=== PATIENT | female | born 1955 | race Two or more races ===

== ENCOUNTER 2022-01-27 09:47 | Outpatient (REF) | payer MEDICARE, MEDICAID, SELFPAY ==
[2022-01-27 10:13] LABS: MANUAL DIFF FLAG NO
[2022-01-27 10:39] LABS: Basophils Percent Auto 0.4 % (0-2); Eosinophils Absolute Auto 0.1 X10*3/uL (0.0-0.4); Eosinophils Percent Auto 2.3 % (0-4); Hematocrit 41.4 % (37.0-47.0); Hemoglobin 13.5 g/dl (12.0-16.0); Imm Gran Abs Auto 0.05 X10*3/uL (0.00-0.03); Imm Gran Pct Auto 0.9 % (0.0-0.4); Lymphocytes Absolute Auto 1.8 X10*3/uL (1.2-4.9); Lymphocytes Percent Auto 31.8 % (20-40); Mean Corpuscular HGB Conc 32.6 g/dl (31.0-35.0); Mean Corpuscular Hemoglobin 28.1 pg (27.0-33.0); Mean Corpuscular Volume 86.3 fL (80.0-98.0); Mean Platelet Volume 10.2 fL (9.4-12.3); Monocytes Absolute Auto 0.5 X10*3/uL (0.1-1.2); Monocytes Percent Auto 8.8 % (2-11); Neutrophils Absolute Auto 3.1 x10*3/uL (2.0-8.3); Neutrophils Percent Auto 55.8 % (45-73); Platelet Count 205 X10*3/uL (160-400); Red Cell Distribution Width 15.9 % (11.0-16.0); White Blood Count 5.5 X10*3/uL (4.8-10.8)
[2022-01-27 11:04] LABS: Appearance Urine CLEAR; Color Urine YELLOW; Glucose Urine UA NEG (NEG); Leukocyte Esterase Urine NEG (NEG); Nitrite Urine NEG (NEG); Urine Blood NEG (NEG); Urine Ketones NEG (NEG); Urine Protein NEG (NEG-TRACE)
[2022-01-27 11:11] LABS: Alanine Aminotransferase 13 U/L (0-31); Albumin Level 3.8 g/dL (3.5-5.0); Alkaline Phosphatase 106 U/L (39-117); Anion Gap 14 (12-20); Aspartate Amino Transferase 15 U/L (5-31); Bilirubin Total 0.4 mg/dL (0.0-1.0); Blood Urea Nitrogen 8 mg/dL (9-16); Calcium 9.3 mg/dL (8.4-10.2); Carbon Dioxide 27 mmol/L (22-29); Chloride 103 mmol/L (96-108); Cholesterol 243 mg/dL; Estimated Glomerular Filt Rate > 60; Glucose Fasting 103 mg/dL (60-99); HDL Cholesterol 67 mg/dL; LDL Cholesterol Calculated 124 mg/dl; Lipase 35 U/L (8-78); Potassium 3.6 mmol/L (3.3-5.1); Sodium 140 mmol/L (135-145); Total Protein 8.3 g/dL (6.5-8.0); Triglycerides 262 mg/dL
[2022-01-27 11:18] LABS: TSH reflex Free T4 1.87 uIU/mL (0.32-4.0); Vitamin D 25-OH Total 33.7 ng/mL (>30)
[2022-01-27 11:34] LABS: Vitamin B12 346 pg/mL (200-900)
== END 2022-01-27 09:48 | disposition home or self-care (01) ==
LOC: HO.LAB 09:47
PROVIDERS: Visit Provider Nurse Practitioner Family
DX: Z13.29 Encounter for screening for other suspected endocrine disorder (principal); K85.90 Acute pancreatitis without necrosis or infection, unspecified; D75.839 Thrombocytosis, unspecified; R32 Unspecified urinary incontinence; I10 Essential (primary) hypertension
CPT/HCPCS: 36415; 80053; 80061; 81003; 82306; 82607; 82746; 83690; 84443; 85025

== ENCOUNTER 2022-04-23 13:24 | Outpatient (REF) | payer OTHER, SELFPAY ==
--- NOTE | ~2022-04-23 | MM_ITS ---
EXAMINATION: BONE DENSITOMETRY CLINICAL INDICATION: Asymptomatic menopausal state. COMPARISON: This is the patient's baseline examination. TECHNIQUE: Using a [employer] DXA System (software version: 13.1) manufactured by [employer], dual-energy x-ray absorptiometry was performed of the lumbar spine and left hip. The images are of good technical quality. Summary results are attached. FINDINGS: AP SPINE L1-L4: BMD 0.774 g/cm2, Z-score -2.2, T-score -3.4, osteoporosis. LEFT FEMUR, NECK: BMD 0.783 g/cm2, Z-score -0.5, T-score -1.8, osteopenia. LEFT FEMUR, TOTAL: BMD 0.799 g/cm2, Z-score -0.6, T-score -1.7, osteopenia. IDENTIFIED RISK FACTORS: Dementia, history of fracture (adult). Early menopause, secondary osteoporosis, hysterectomy, bilateral oophorectomy. HISTORY OF FRACTURE: Other. MEDICATIONS: None listed. MM/XR DEXA axial skeleton IMPRESSION: 1. DIAGNOSIS: Osteoporosis based on the lowest T-score value of -3.4 in the lumbar spine applying World Health Organization criteria. 2. 10-YEAR FRACTURE RISK PREDICTION, FRAX: According to the guidelines, FRAX calculation should only be performed on patients in the osteopenia bone density category. Therefore, FRAX was not performed on this patient. 3. Treatment Recommendations: NOF guidelines recommend consideration for treatment in postmenopausal women and men age 50 and older presenting with the following: -A hip or vertebral (clinical or morphometric) fracture. -T-score less than or equal to -2.5 at the femoral neck or spine after appropriate evaluation to exclude secondary causes. -Low bone mass at the hip or spine and a 10-year fracture probability by FRAX of greater than or equal to 3% for hip fracture or greater than or equal to 20% for major osteoporotic fracture based on the [place] adapted WHO algorithm. 4. Other Recommendations: All treatment decisions require clinical judgment and consideration of individual patient factors, including patient preferences, comorbidities, previous drug use, risk factors not captured in the FRAX model (e.g. frailty, falls, vitamin D deficiency, increased bone turnover, interval significant decline in bone density) and possible under or overestimation of fracture risk by FRAX. Additional medical evaluation for secondary cause of low bone mineral density may be appropriate. FUTURE SCAN RECOMMENDATION: People with diagnosed cases of osteoporosis or at high risk for fracture should have regular bone mineral density tests. For patients eligible for Medicare, routine testing is allowed once every 2 years. The testing frequency can be increased to one year for patients who have rapidly progressing disease, those who are receiving or discontinuing medical therapy to restore bone mass, or have additional risk factors.
--- NOTE | ~2022-04-23 | MM_ITS ---
EXAMINATION: MM SCREENING DIGITAL BREAST TOMOSYNTHESIS, BILATERAL CLINICAL INFORMATION: Screening. Asymptomatic. Prior outside mammography from [place] unavailable. The lifetime risk of breast cancer based on the Tyrer-Cuzick Model is 4%. COMPARISON: None. TECHNIQUE: Digital breast tomosynthesis is performed in both the craniocaudal and mediolateral oblique views along with computer-aided detection (CAD). Synthesized 2D images are generated from the tomosynthesis. FINDINGS: There are scattered areas of fibroglandular density (ACR BI-RADS breast composition Category b). There are no significant masses, abnormal calcifications, or other abnormalities. No architectural abnormality. The axilla and skin contours are unremarkable. MM/MM tomosynthesis screening BI IMPRESSION: No mammographic evidence of malignancy. ASSESSMENT: BI-RADS 1: Negative RECOMMENDATION: Routine annual mammography screening. This patient's information was entered into a reminder system with a target due date for their next mammogram.
== END 2022-04-23 13:25 | disposition home or self-care (01) ==
LOC: HO.MAMMO 13:24
PROVIDERS: PCP Nurse Practitioner Family
DX: Z12.31 Encounter for screening mammogram for malignant neoplasm of breast (principal); Z13.820 Encounter for screening for osteoporosis; Z78.0 Asymptomatic menopausal state
CPT/HCPCS: 77063; 77067; 77080

== ENCOUNTER → 2022-05-28 13:19 | Outpatient (BNVA) | payer OTHER, SELFPAY | PROVIDERS: PCP Nurse Practitioner Family; Visit Provider Internal Medicine | DX: Z01.818 Encounter for other preprocedural examination (principal) | CPT/HCPCS: 99202 ==

== ENCOUNTER → 2022-05-29 08:23 | Outpatient (BNVA) | payer OTHER, SELFPAY | PROVIDERS: PCP Nurse Practitioner Family; Visit Provider Internal Medicine Endocrinology, Diabetes & Metabolism | DX: M81.0 Age-related osteoporosis without current pathological fracture (principal) | CPT/HCPCS: 99202 ==

== ENCOUNTER 2022-05-29 09:53 | Outpatient (REF) | payer OTHER, SELFPAY ==
[2022-06-05 19:04] LABS: PES - Abn Protein Band 1 0.9 g/dL (NONE DETECTED); Prot Elec - Albumin 4.1 g/dL (3.8-4.8); Prot Elec - Alpha1 0.3 g/dL (0.2-0.3); Prot Elec - Alpha2 0.8 g/dL (0.5-0.9); Prot Elec - Beta 1 0.5 g/dL (0.4-0.6); Prot Elec - Beta 2 0.3 g/dL (0.2-0.5); Prot Elec - Gamma 2.4 g/dL (0.8-1.7); Prot Elec - Total Protein 8.3 g/dL (6.1-8.1)
== END 2022-05-29 09:54 | disposition home or self-care (01) ==
LOC: HO.10HDL 09:53
PROVIDERS: Visit Provider Internal Medicine Endocrinology, Diabetes & Metabolism
DX: M81.0 Age-related osteoporosis without current pathological fracture (principal)
CPT/HCPCS: 84165; 86335

== ENCOUNTER 2022-06-02 08:03 | Day surgery (SDC) | payer OTHER, SELFPAY ==
--- NOTE | 2022-05-30 09:45 | HO.ANESPROP2 ---
Documented by User: Miya Juárez NP 05/30/22 09:47 HPI - Anesthesia Eval Consult details Narrative: 67yo F for Colonoscopy PMFSH Active Problems Active Problems: All Active Problems (Updated 04/25/22 @ 13:17 by FERNANDA Garcia) Osteoporosis (Acute) Obesity (BMI 30-39.9) (Acute) Cervical cancer screening (Acute) Adult general medical exam (Acute) Screening for colon cancer (Acute) Post-menopausal (Acute) Elevated fasting glucose (Acute) Hyperlipidemia (Acute) GERD (gastroesophageal reflux disease) (Acute) Impaired mobility and ADLs (Acute) Urinary incontinence (Acute) History of CVA (cerebrovascular accident) (Acute) Screening for hypothyroidism (Acute) Weakness (Acute) Hypertension (Acute) Thrombocytosis (Acute) Pancreatitis (Acute) Dementia (Acute) Past Medical History Medical History COVID-19 History of CVA (cerebrovascular accident) History of DVT (deep vein thrombosis) Hospital discharge follow-up Family History Family History Mother Hypertension History of CVA (cerebrovascular accident) Father Diabetes Surgical History Surgical History H/O section H/O hand surgery Social History Social History Housing: House Patient Tobacco Use Status: Never used Tobacco e-Cigarette/Vaping Use: Never Used Use of substances other than those prescribed or required for medical reasons: No Are you DNR?: No Advance Directives: No Advance Directives Information Provided: Yes service: No Cognitive needs: Yes (walker ) Hearing needs: No Vision needs: No Meds Allergies Allergy/AdvReac Type Severity Reaction Status Date / Time aspirin Allergy Anaphylaxis Verified 05/29/22 08:31 Home Medications Medication Instructions Recorded Confirmed Last Taken Type carbidopa 25 mg-levodopa 100 mg 1 tab PO TID 04/10/22 06/02/22 Unknown History tablet Exam Exam Date and Time: May 30, 2022 0945 Pertinent Lab Results Pertinent Lab Results: Laboratory Tests 01/27/22 01/27/22 10:11 10:11 WBC 5.5 Hgb 13.5 Hct 41.4 Plt Count 205 Sodium 140 Potassium 3.6 Chloride 103 Carbon Dioxide 27 BUN 8 L Creatinine 0.78 Assessment and Plan Assessment Anesthesia Assessment: Chart Reviewed Documented by User: Kenisha Jean MD 06/02/22 09:06 [facility] Active Problems Active Problems: All Active Problems (Updated 04/25/22 @ 13:17 by FERNANDA Garcia) Osteoporosis (Acute) Obesity (BMI 30-39.9) (Acute) Cervical cancer screening (Acute) Adult general medical exam (Acute) Screening for colon cancer (Acute) Post-menopausal (Acute) Elevated fasting glucose (Acute) Hyperlipidemia (Acute) GERD (gastroesophageal reflux disease) (Acute) Impaired mobility and ADLs (Acute) Urinary incontinence (Acute) History of CVA (cerebrovascular accident) (Acute)- multiple strokes Screening for hypothyroidism (Acute) Weakness (Acute) Hypertension (Acute) Thrombocytosis (Acute) Pancreatitis (Acute) Dementia (Acute) Past Medical History Medical History COVID-19 History of CVA (cerebrovascular accident) History of DVT (deep vein thrombosis) Hospital discharge follow-up Functional capacity: uses cane/walker Family History Family History Mother Hypertension History of CVA (cerebrovascular accident) Father Diabetes Family history of problems with anesthesia: No Surgical History Surgical History H/O section H/O hand surgery History of Problems with Anesthesia: No Social History Social History Housing: House Patient Tobacco Use Status: Never used Tobacco e-Cigarette/Vaping Use: Never Used Use of substances other than those prescribed or required for medical reasons: No Are you DNR?: No Advance Directives: No Advance Directives Information Provided: Yes service: No Cognitive needs: Yes (walker ) Hearing needs: No Vision needs: No Meds Allergies Allergy/AdvReac Type Severity Reaction Status Date / Time aspirin Allergy Anaphylaxis Verified 05/29/22 08:31 Home Medications Medication Instructions Recorded Confirmed Last Taken Type carbidopa 25 mg-levodopa 100 mg 1 tab PO TID 04/10/22 06/02/22 Unknown History tablet Exam Height,Weight and Vital Signs: Height 4 ft 4 in Weight 67.585 kg Vital Signs Temp Pulse Resp BP Pulse Ox O2 Del Method 06/02/22 08:58 97.4 F 66 16 156/76 H 97 Room Air Airway Mallampati Class: III TM Dist: >3cm Neck ROM: Full Loose/Missing/Broken Teeth: No Heart: RRR Lungs: CTAB Assessment and Plan Assessment Anesthesia Assessment: Anesthesia Plan Discussed (Discussed with daughter (HCP)) Final Anesthetic Review Family History of Problems with Anesthesia: No History of Problems with Anesthesia: No NPO: Yes ASA Class: III Final Preanesthetic Review: No Changes in Pt Med Stat, Meds/Allgs Chart Reviewed, Consent Obtained/Reviewed and Anes Risks/Benef Reviewed Patient Risk: Intermediate Procedure Risk: Low Assessment/Block/Sedation in SS: Assess/Block/Sedation-SS Anesthetic Plan Anesthetic Plan: MAC: Disposition: Standard PACU
[2022-06-02 08:25] VITALS: BMI 38.7
[2022-06-02 08:58] VITALS: BP 156/76; PULSE 66; RESP 16; TEMP 36.3; O2SAT 97
[2022-06-02] MEDS: Lactated Ringers 1,000 ML 100 ML IVCONT (09:13)
--- NOTE | 2022-06-02 09:32 | MHC.SHP ---
Pre-Procedural Eval Section A Date of Service: 06/02/22 The patient is an INPATIENT: No The History & Physical has been completed within 30 days and I have reviewed it.: Yes Section B Chief Complaint: screening Allergies: Allergies Allergy/AdvReac Type Severity Reaction Status Date / Time aspirin Allergy Anaphylaxis Verified 05/29/22 08:31 Plan Diagnosis/Plan: Unchanged I have reviewed the history and physical and performed a pertinent physical examination on my patient. No changes have occurred unless specified.
--- NOTE | 2022-06-02 09:47 | P.OP_ITS ---
Operative Note Operative Note Date of Service: 06/02/22 Narrative: Procedure: Colonoscopy Indication: Screening Endoscopist: Lucrecia Moreau MD Anesthesia Provider: Maria Alejandra Olson CRNA Anesthesia type: MAC Instrument: Olympus [id number]-[id number] Consent: Indication, risks vs benefits, and alternatives were discussed with the patient's daughter (HCP) who gave written informed consent to proceed. EKG, pulse, pulse oximetry and blood pressure were monitored throughout the procedure. Please see anesthesia flowsheet. Procedure: The patient was brought to the procedure room and placed in the left lateral decubitus position. IV medications were administered by the anesthesia provider in attendance. A digital rectal exam was performed which was abnormal due to finding of hemorrhoids. The colonoscope was then inserted through the anus and advanced through the colon to the cecum at 75 cm,and terminal ileum. Mucosa was carefully examined under high definition white light as the instrument was slowly withdrawn in a retrograde panoramic fashion. Retroflexion was performed in rectum. The procedure was not difficult. There were no immediate obvious complications. The quality of the prep was BBPS: 3+2+3 = adequate Withdrawal time 10 minutes. Limitations: No limitations. Findings: Mucosa: Normal to cecum and terminal ileum. Protruding lesions: * Large external and small internal hemorrhoids without stigmata of recent bleeding. Impression: 1. Normal colon and terminal ileum mucosa 2. Internal and external hemorrhoids Recommendations: - Repeat colonoscopy in 10 years for CRC screening if in good health
[2022-06-02 10:22] VITALS: BP 143/76; PULSE 65; RESP 16; TEMP 36.2; O2SAT 99
[2022-06-02 10:37] VITALS: BP 150/79; PULSE 73; RESP 16; TEMP 36.2; O2SAT 98
[2022-06-02 10:52] VITALS: BP 147/87; PULSE 57; RESP 16; TEMP 36.1; O2SAT 99
== END 2022-06-02 11:39 | disposition home or self-care (01) ==
PROVIDERS: PCP Nurse Practitioner Family; Visit Provider Internal Medicine
PROC: 0DJD8ZZ Inspection of Lower Intestinal Tract, Via Natural or Artificial Opening Endoscopic (ICD-10-PCS; CPT 45378; principal; 2022-06-02 09:30)
DX: Z12.11 Encounter for screening for malignant neoplasm of colon (principal); K64.8 Other hemorrhoids; K64.4 Residual hemorrhoidal skin tags; K21.9 Gastro-esophageal reflux disease without esophagitis; G20 Parkinson's disease; F02.80 Dementia in other diseases classified elsewhere, unspecified severity, without behavioral disturbance, psychotic disturbance, mood disturbance, and anxiety; I10 Essential (primary) hypertension; M81.0 Age-related osteoporosis without current pathological fracture; E66.9 Obesity, unspecified; Z68.38 Body mass index [BMI] 38.0-38.9, adult; Z79.899 Other long term (current) drug therapy; Z88.8 Allergy status to other drugs, medicaments and biological substances; Z86.73 Personal history of transient ischemic attack (TIA), and cerebral infarction without residual deficits; Z86.718 Personal history of other venous thrombosis and embolism; Z86.16 Personal history of COVID-19
CPT/HCPCS: G0121

== ENCOUNTER → 2022-06-18 13:57 | Outpatient (BNVA) | payer OTHER, SELFPAY | PROVIDERS: PCP Nurse Practitioner Family; Visit Provider Internal Medicine | DX: Z09 Encounter for follow-up examination after completed treatment for conditions other than malignant neoplasm (principal) | CPT/HCPCS: 99212 ==

== ENCOUNTER 2022-07-01 10:48 | Outpatient (REF) | payer OTHER, SELFPAY ==
[2022-07-01 11:43] LABS: Hematocrit 42.9 % (37.0-47.0); Hemoglobin 14.2 g/dl (12.0-16.0); Mean Corpuscular HGB Conc 33.1 g/dl (31.0-35.0); Mean Corpuscular Hemoglobin 29.8 pg (27.0-33.0); Mean Corpuscular Volume 90.1 fL (80.0-98.0); Mean Platelet Volume 9.9 fL (9.4-12.3); Platelet Count 264 X10*3/uL (160-400); Red Blood Count 4.76 X10*6/uL (4.20-5.50); Red Cell Distribution Width 14.3 % (11.0-16.0)
[2022-07-01 11:57] LABS: Estimated Average Glucose 111 mg/dL; Hemoglobin A1c % 5.5 %
[2022-07-01 12:35] LABS: Alanine Aminotransferase 20 U/L (0-31); Albumin Level 4.3 g/dL (3.5-5.0); Alkaline Phosphatase 113 U/L (39-117); Anion Gap 14 (12-20); Aspartate Amino Transferase 17 U/L (5-31); Bilirubin Total 0.5 mg/dL (0.0-1.0); Blood Urea Nitrogen 11 mg/dL (9-16); Calcium 9.8 mg/dL (8.4-10.2); Carbon Dioxide 26 mmol/L (22-29); Chloride 103 mmol/L (96-108); Cholesterol 204 mg/dL; Estimated Glomerular Filt Rate > 60; Glucose Random 99 mg/dL (60-115); HDL Cholesterol 91 mg/dL; LDL Cholesterol Calculated 81 mg/dl; Potassium 4.4 mmol/L (3.3-5.1); Sodium 139 mmol/L (135-145); Total Protein 8.7 g/dL (6.5-8.0); Triglycerides 162 mg/dL
[2022-07-02 16:14] LABS: Calcium (PTHI) 9.9 mg/dL (8.6-10.4); PTHI 78 pg/mL (16-77)
== END 2022-07-01 10:49 | disposition home or self-care (01) ==
LOC: HO.LAB 10:48
PROVIDERS: Internal Medicine Endocrinology, Diabetes & Metabolism; PCP Nurse Practitioner Family; Visit Provider Nurse Practitioner Family
DX: R73.01 Impaired fasting glucose (principal); E78.5 Hyperlipidemia, unspecified; D75.839 Thrombocytosis, unspecified; M81.0 Age-related osteoporosis without current pathological fracture
CPT/HCPCS: 36415; 80053; 80061; 83036; 83970; 85027; 86335

== ENCOUNTER → 2022-07-03 13:24 | Outpatient (BNVA) | payer OTHER, SELFPAY | PROVIDERS: PCP Nurse Practitioner Family; Visit Provider Nurse Practitioner Family | DX: R32 Unspecified urinary incontinence (principal); R39.15 Urgency of urination; I69.954 Hemiplegia and hemiparesis following unspecified cerebrovascular disease affecting left non-dominant side; G20 Parkinson's disease | CPT/HCPCS: 99202 ==

== ENCOUNTER 2022-07-24 10:57 | Outpatient (REF) | payer OTHER, SELFPAY ==
--- NOTE | ~2022-07-24 | US_ITS ---
EXAMINATION: US RETROPERITONEAL COMPLETE (RENAL) CLINICAL INFORMATION: Unspecified urinary incontinence. COMPARISON: None TECHNIQUE: Real-time imaging of the kidneys and bladder. FINDINGS: RIGHT KIDNEY: 11.6 x 4.9 x 4.6 cm (SAG x AP x TRV). The kidney is normal in size, contour, and echogenicity. Renal cortical thickness is normal. No calculi or focal parenchymal lesions. No hydronephrosis. LEFT KIDNEY: 10.8 x 4.7 x 4.3 cm (SAG x AP x TRV). The kidney is normal in size, contour, and echogenicity. Renal cortical thickness is normal. No calculi or focal parenchymal lesions. No hydronephrosis. BLADDER: Well distended and normal. Bilateral ureteral jets are demonstrated. Prevoid bladder volume is 216 mL. Postvoid bladder volume is 73.8 mL. US/US retroperitoneal comp IMPRESSION: No definite evidence of obstructive uropathy. Large postvoid residual.
== END 2022-07-24 10:58 | disposition home or self-care (01) ==
LOC: HO.US 10:57
PROVIDERS: PCP Nurse Practitioner Family; Visit Provider Nurse Practitioner Family
DX: R32 Unspecified urinary incontinence (principal)
CPT/HCPCS: 76770

== ENCOUNTER → 2022-09-26 09:27 | Outpatient (BNVA) | payer OTHER, SELFPAY | PROVIDERS: PCP Nurse Practitioner Family; Visit Provider Nurse Practitioner Family | DX: R32 Unspecified urinary incontinence (principal) | CPT/HCPCS: 51798; 99212 ==

== ENCOUNTER 2022-10-09 09:49 | Outpatient (REF) | payer OTHER, SELFPAY ==
[2022-10-09 10:40] LABS: Hematocrit 43.4 % (37.0-47.0); Hemoglobin 14.4 g/dl (12.0-16.0); Mean Corpuscular HGB Conc 33.2 g/dl (31.0-35.0); Mean Corpuscular Hemoglobin 29.2 pg (27.0-33.0); Mean Platelet Volume 9.8 fL (9.4-12.3); Platelet Count 272 X10*3/uL (160-400); Red Blood Count 4.93 X10*6/uL (4.20-5.50); Red Cell Distribution Width 14.1 % (11.0-16.0); White Blood Count 7.3 X10*3/uL (4.8-10.8)
[2022-10-09 11:27] LABS: Alanine Aminotransferase 13 U/L (0-31); Albumin Level 4.1 g/dL (3.5-5.0); Alkaline Phosphatase 117 U/L (39-117); Anion Gap 13 (12-20); Aspartate Amino Transferase 14 U/L (5-31); Bilirubin Total 0.5 mg/dL (0.0-1.0); Blood Urea Nitrogen 14 mg/dL (9-16); Calcium 9.5 mg/dL (8.4-10.2); Carbon Dioxide 24 mmol/L (22-29); Chloride 107 mmol/L (96-108); Cholesterol 178 mg/dL; Estimated Glomerular Filt Rate > 60; Glucose Fasting 92 mg/dL (60-99); HDL Cholesterol 75 mg/dL; LDL Cholesterol Calculated 79 mg/dl; Potassium 3.9 mmol/L (3.3-5.1); Sodium 140 mmol/L (135-145); Total Protein 7.9 g/dL (6.5-8.0); Triglycerides 120 mg/dL
[2022-10-09 11:43] LABS: TSH reflex Free T4 2.39 uIU/mL (0.32-4.0)
== END 2022-10-09 09:50 | disposition home or self-care (01) ==
LOC: HO.LAB 09:49
PROVIDERS: PCP Nurse Practitioner Family; Visit Provider Nurse Practitioner Family
DX: I10 Essential (primary) hypertension (principal); R73.01 Impaired fasting glucose; E78.5 Hyperlipidemia, unspecified; M81.0 Age-related osteoporosis without current pathological fracture
CPT/HCPCS: 36415; 80053; 80061; 84443; 85027; 99212

== ENCOUNTER → 2022-11-04 10:33 | Outpatient (BNVA) | payer OTHER, SELFPAY | PROVIDERS: PCP Nurse Practitioner Family; Visit Provider Internal Medicine Endocrinology, Diabetes & Metabolism | DX: M81.0 Age-related osteoporosis without current pathological fracture (principal); Z79.620 Long term (current) use of immunosuppressive biologic | CPT/HCPCS: 96372 ==

== ENCOUNTER 2022-12-15 12:40 | Emergency (ER) | payer OTHER, SELFPAY ==
--- NOTE | ~2022-12-15 | CT_ITS ---
EXAMINATION: CT HEAD WITHOUT CONTRAST CLINICAL INFORMATION: Left arm weakness. COMPARISON: None available. TECHNIQUE: Contiguous axial imaging was performed from the skull base to vertex without intravenous administration of contrast. This CT examination was performed using dose optimization techniques as appropriate, variously including the following: *Automated exposure control *Adjustment of mA and/or kV according to patient size (this includes techniques or standardized protocols for targeted exams where dose is matched to indication/reason for exam; i.e. extremities or head) *Use of iterative reconstruction technique DLP: 535 mGy-cm FINDINGS: Right frontal encephalomalacia/old infarct with ex vacuo dilatation of the frontal horn right lateral ventricle. Moderate subcortical and periventricular white matter hypoattenuation most likely representing chronic small vessel ischemic disease. No intracranial hemorrhage. No mass effect or midline shift. No extra-axial fluid collections. The ventricles and sulci are prominent in keeping with involutional changes. No hydrocephalus. The calvarium is intact. Imaged paranasal sinuses and mastoid air cells are clear. CT/CT head/brain wo IV con IMPRESSION: No acute intracranial pathology. Old right frontal infarct with encephalomalacia. If clinical concern persists, MRI may provide a more sensitive evaluation.
--- NOTE | ~2022-12-15 | CT_ITS ---
EXAMINATION: CT ANGIOGRAM OF THE CHEST WITH AND WITHOUT CONTRAST (CT PULMONARY ANGIOGRAM FOR PE) CLINICAL INFORMATION: Reason for Exam Elevated D-dimer rule out PE COMPARISON: Radiograph from the same date. TECHNIQUE: Prior to contrast administration, noncontrast localization images were obtained. Subsequently, multidetector volumetric imaging was performed from the thoracic inlet to below the diaphragms following the administration of 80 mL Omnipaque 350 intravenous contrast. No contrast reaction reported Sagittal, coronal, and MIP oblique sagittal reformatted images were obtained on the CT workstation, uploaded to PACS, and reviewed. This CT examination was performed using dose optimization techniques as appropriate, variously including the following: *Automated exposure control *Adjustment of mA and/or kV according to patient size (this includes techniques or standardized protocols for targeted exams where dose is matched to indication/reason for exam; i.e. extremities or head) *Use of iterative reconstruction technique Total exam dose-length product 416 mGy-cm FINDINGS: QUALITY OF STUDY/CONTRAST BOLUS: Suboptimal, limited by the late bolus timing. PULMONARY ARTERIES: No central pulmonary emboli are identified in the pulmonary outflow tract and bilateral main pulmonary arteries. Sensitivity for pulmonary emboli in the lobar, segmental, and distal branches is markedly limited by bolus timing and respiratory motion artifact. THORACIC AORTA: Calcific atherosclerosis. No aneurysm. Common origin of the right brachiocephalic and left common carotid artery. LUNG: Respiratory motion artifact. Dependent atelectasis. No consolidation. Central airways appear clear. PLEURA: No pleural effusion or pneumothorax. MEDIASTINUM: Normal heart size. No pericardial effusion. No hilar or mediastinal lymphadenopathy. No evidence of septal bowing or right heart strain. CORONARY ARTERY CALCIFICATION: None visualized on this study, though sensitivity is limited by motion and contrast. CHEST WALL/AXILLA: No axillary or internal mammary lymphadenopathy. OSSEOUS STRUCTURES: Mild degenerative disc disease in the thoracic spine. No acute osseous findings. UPPER ABDOMEN: The right renal cortical scarring. No acute findings in the upper abdomen. No reflux of contrast into the hepatic veins to suggest elevated right heart pressures. CT/CT angio chest PE protocol IMPRESSION: No acute pulmonary findings. Sensitivity for pulmonary emboli in the lobar, segmental, and distal branches is markedly limited by bolus timing and respiratory motion artifact. Right paratracheal soft tissue prominence seen radiographically corresponds to mediastinal fat and normal vascular structures. No suspicious mediastinal abnormalities VTE: indeterminate
--- NOTE | ~2022-12-15 | XR_ITS ---
EXAMINATION: XR CHEST CLINICAL INFORMATION: Weakness. COMPARISON: None available. TECHNIQUE: Frontal view of the chest was obtained. FINDINGS: The lungs are moderately expanded. No focal consolidation. No pleural effusion. Right paratracheal soft tissue prominence. The heart is enlarged. XR/XR chest 1V IMPRESSION: Right paratracheal soft tissue prominence. No prior studies available for comparison. Consider contrast-enhanced chest CT.
[2022-12-15 12:51] VITALS: BP 118/63; PULSE 79; RESP 18; TEMP 36.2; O2SAT 96; BMI 41.6
--- NOTE | 2022-12-15 12:55 | ECG_ITS ---
Test Reason : weakness Blood Pressure : / mmHG Vent. Rate : 072 BPM Atrial Rate : 072 BPM P-R Int : 142 ms QRS Dur : 078 ms QT Int : 416 ms P-R-T Axes : 033 015 127 degrees QTc Int : 455 ms Normal sinus rhythm ST & T wave abnormality, consider anterolateral ischemia Abnormal ECG No previous ECGs available Referred By: Ta Lee Electronically Signed By:REED HERR
--- NOTE | 2022-12-15 12:56 | ED.GENADULT ---
HPI - General Adult General Chief complaint: General Medical Stated complaint: weakness Time Seen by Provider: 12/15/22 13:16 Source: patient and family (Daughter) Mode of arrival: ambulatory Limitations: no limitations History of Present Illness HPI narrative: 67-year-old female came in with her daughter for evaluation of generalized weakness, lower extremities edema started about 6 days ago, came back from [place] last week. No chest pain, no shortness of breath, fever, chills, no focal weakness, no numbness. Related Data Home Medications Medication Instructions Recorded Confirmed carbidopa 25 mg-levodopa 100 mg 1 tab PO TID 12/15/22 12/15/22 tablet Previous Rx's Medication Instructions Recorded Shower Chair #1 ea 01/24/22 amlodipine 5 mg tablet 5 mg PO DAILY #90 tabs 07/25/22 furosemide 20 mg tablet 20 mg PO DAILY #90 tabs 07/25/22 irbesartan 150 mg tablet 150 mg PO DAILY #90 tabs 07/25/22 metoprolol tartrate 50 mg tablet 50 mg PO BID #180 tabs 07/25/22 pantoprazole 40 mg tablet,delayed 40 mg PO DAILY #90 tabs 07/25/22 release pravastatin 10 mg tablet 10 mg PO BEDTIME #90 tabs 07/25/22 hospital bed #1 ea 09/16/22 tolterodine 2 mg capsule,extended 4 mg PO DAILY 90 days #180 caps 09/26/22 release 24 hr denosumab 60 mg/mL subcutaneous 60 mg subcut [id number] #1 mL 10/20/22 syringe (Prolia) diaper,brief,adult,disposable #70 ea 10/30/22 (Briefs, Adult-Extra Large) latex gloves (Latex Gloves, Medium) #100 ea 10/30/22 miscellaneous medical supply 1 ea miscellaneous DAILY #200 ea 10/30/22 miscellaneous medical supply 1 ea miscellaneous DAILY #72 ea 10/30/22 calcium carbonate 600 mg-vitamin 1 tab PO DAILY #90 tabs 11/05/22 D3 10 mcg (400 unit) tablet (Calcium 600 + D(3)) Allergies Allergy/AdvReac Type Severity Reaction Status Date / Time aspirin Allergy Anaphylaxis Verified 12/15/22 21:03 Review of Systems Review of Systems: All other systems are reviewed and are negative Constitutional: Reports as per HPI and Reports no additional constitutional complaints Eyes: Reports as per HPI and Reports no additional eye complaints Reports system reviewed and no additional complaints, except as documented Cardiovascular: Reports as per HPI and Reports no additional cardiovascular complaints Respiratory: Reports as per HPI and Reports no additional respiratory complaints Gastrointestinal: Reports as per HPI and Reports no additional gastrointestinal complaints Genitourinary: Reports no additional female genitourinary complaints Musculoskeletal: Reports no additional musculoskeletal complaints Skin/Breast: Reports system reviewed and no additional complaints, except as docu Psychiatric: Reports no additional psychiatric complaints Endocrine: Reports no additional endocrine complaints Hematologic/Lymphatic: Reports no additional hematologic/lymphatic complaints Allergic/Immunologic: Reports no additional allergic/immunologic complaints Reports system reviewed and no additional complaints, except as documented and Reports Abnormal speech present [facility] Past Medical History Medical History COVID-19 History of CVA (cerebrovascular accident) History of DVT (deep vein thrombosis) Hospital discharge follow-up Parkinsons disease Surgical History H/O section H/O hand surgery Hx of colonoscopy Family History Family History Mother Hypertension History of CVA (cerebrovascular accident) Father Diabetes Social History Social History Housing: House Patient Tobacco Use Status: Never used Tobacco e-Cigarette/Vaping Use: Never Used Advance Directives: Yes Advance Directives on File: Yes Advance Directives Date on File: 06/02/22 service: No Cognitive needs: Yes (walker ) Hearing needs: No Vision needs: No Physical Exam ED Vital Signs: Vital Signs - 24 hr 12/15/22 12:51 12/15/22 19:19 12/15/22 21:00 Temperature 97.2 F 101.5 F H Pulse Rate 79 84 89 Respiratory Rate 18 18 17 Blood Pressure 118/63 157/81 H 174/86 H Pulse Oximetry 96 97 94 Oxygen Delivery Method Room Air Room Air Room Air BMI result Body Mass Index 41.6 Vital signs have been reviewed as appeared to be correct. Blood pressure normal. Heart rate normal. Respiration rate normal. Temperature normal. Oxygen saturation normal. Appearance: Alert. Oriented X3. No acute distress. Head: Normal external exam. Normocephalic. Atraumatic. No Cheung signs noted. No raccoon eyes noted Eyes: PERRLA. EOMI. Conjunctiva and sclera normal. Eyelids normal. ENT: TM's Normal. Pharynx normal. Uvula midline. Moist mucous membranes. No trismus noted. No drooling noted. No muffled voice noted. Neck: Normal inspection. Neck supple. FROM. No adenopathy. Thyroid Normal. No meningeal signs. No neck mass noted. CVS: Normal heart rate and rhythm. Heart sound normal. No murmurs noted. Pulses normal throughout. Respiratory: No respiratory distress. Painless inspiration. Breath sounds normal. No wheezes/rales/rhonchi noted. Chest nontender. No accessory muscle usage noted or decreased air movement noted. Abdomen: Soft and nontender. Bowel sounds normal in all 4 quadrants. No distention noted. No organomegaly noted. No visible injury noted. Back: No CVA tenderness. Full range of motion noted. Skin: Skin warm and dry. Normal skin color. Normal skin turgor. No rashes/lesions/lacerations noted. Extremities: No lower extremity edema. Extremities exhibit normal range of motion. Extremities nontender. Neuro: Oriented X 3. Cranial nerve exam: II-XII are grossly intact No motor deficit. No sensory deficit. Reflexes normal. Course Course Course Narrative: 67-year-old female presents for evaluation of bilateral lower extremity edema and weakness. The patient's daughter states that her symptoms 1st started on 12/09/2022. The patient is able to move all extremities but does have some difficulty with left upper extremity including opposition of thumb. No facial asymmetry. Plan for CT brain, labs, EKG, UA. Reevaluation(s) Reevaluation #1: Generalized weakness, awaiting for CT angio of the chest for better explanation of x-ray findings and also to explain elevated D-dimer. The case was signed out to Dr. Kulkarni to check on the CTA. Time: 19:54 Medications Administered Discontinued Medications Generic Name Dose Route Start Last Admin Trade Name Freq PRN Reason Stop Dose Admin Iohexol 100 ml 12/15/22 21:43 12/15/22 21:44 Iohexol 350 Mg/Ml 100 Ml Infus..Btl IV 12/15/22 21:44 65 ml ONCE ONE Administration Medical Decision Making Medical Decision Making [facility] Narrative: 23:45 patient seen and re-evaluated patient is 67 years old with history of dementia hypertension Parkinson's disease walks with walker and sometimes uses wheelchair brought by daughter for difficulty in walking for last 1 week. Patient was on carbidopa last month which was stopped by the neurologist patient workup is negative at this no signs of infection noticed CTA chest negative. Patient does have support at home does not want to go to rehab will discharge patient home advised to follow up with neurologist Differential Diagnosis Differential Diagnoses: The differential diagnosis associated with the presentation includes (Generalized weakness, pneumonia, pneumothorax, pulmonary embolism, electrolytes abnormalities, ACS, dehydration, severe anemia.) Admission/Observation Consideration of admission/observation: Escalation of care including admission/observation considered Lab Data [facility] Lab Attestation statement: I reviewed the patient's lab results. 12/15/22 13:05 Labs: Lab Results 12/15/22 12/15/22 12/15/22 Range/Units 13:05 14:14 14:14 WBC 9.5 (4.8-10.8) X10*3/uL RBC 4.73 (4.20-5.50) X10*6/uL Hgb 14.1 (12.0-16.0) g/dl Hct 42.6 (37.0-47.0) % MCV 90.1 (80.0-98.0) fL MCH 29.8 (27.0-33.0) pg MCHC 33.1 (31.0-35.0) g/dl RDW 14.3 (11.0-16.0) % Plt Count 155 L D (160-400) X10*3/uL MPV 9.8 (9.4-12.3) fL Immature Gran % (Auto) 0.9 H (0.0-0.4) % Neut % (Auto) 73.1 H (45-73) % Lymph % (Auto) 16.6 L (20-40) % [place] % (Auto) 8.9 (2-11) % Eos % (Auto) 0.1 (0-4) % Baso % (Auto) 0.4 (0-2) % Lymph # (Auto) 1.6 (1.2-4.9) X10*3/uL [place] # (Auto) 0.9 (0.1-1.2) X10*3/uL Eos # (Auto) 0.0 (0.0-0.4) X10*3/uL Baso # (Auto) 0.0 (0.0-0.2) X10*3/uL Abs Immat Gran (auto) 0.09 H (0.00-0.03) X10*3/uL Absolute Neuts (auto) 6.9 (2.0-8.3) x10*3/uL Absolute Nucleated RBC 0.000 (0.0-0.012) X10*3/uL Nucleated RBC % (auto) 0.0 (0.0-0.2) /100WBC PT 11.5 (10.0-13.1) SEC INR 1.0 (0.9-1.1) APTT 35.8 (26.0-36.4) SEC D-Dimer High Sensitivty 378 NG/ML Sodium 137 (135-145) mmol/L Potassium 4.2 (3.3-5.1) mmol/L Chloride 105 (96-108) mmol/L Carbon Dioxide 22 (22-29) mmol/L Anion Gap 14 (12-20) BUN 10 (9-16) mg/dL Creatinine 0.84 (0.5-1.4) mg/dL Estim Creat Clear Calc 46.4 Estimated GFR > 60 Random Glucose 101 (60-115) mg/dL Calcium 10.2 D (8.4-10.2) mg/dL Total Bilirubin 0.6 (0.0-1.0) mg/dL AST 18 (5-31) U/L ALT 14 (0-31) U/L Alkaline Phosphatase 96 (39-117) U/L Troponin I High Sens (<3.5-17.0) ng/L B-Natriuretic Peptide (<100) pg/mL Total Protein 9.2 H (6.5-8.0) g/dL Albumin 4.0 (3.5-5.0) g/dL Lipase 30 (8-78) U/L Urine Color Urine Appearance Urine pH (5.0-9.0) Ur Specific [place] (1.005-1.025) Urine Protein (Neg-Trace) mg/dL Urine Glucose (UA) (Negative) mg/dL Urine Ketones (Negative) mg/dL Urine Blood (Negative) Urine Nitrite (Negative) Ur Leukocyte Esterase (Negative) Urine RBC (0-2) /HPF Urine WBC (0-5) /HPF Ur Squamous Epith Cells (0-2) /HPF Urine Bacteria (None Seen) Hyaline Casts (0-2) /LPF COVID-19 (DORA) (Negative) COVID-19 Clin Com 12/15/22 12/15/22 12/15/22 Range/Units 14:14 14:14 18:05 WBC (4.8-10.8) X10*3/uL RBC (4.20-5.50) X10*6/uL Hgb (12.0-16.0) g/dl Hct (37.0-47.0) % MCV (80.0-98.0) fL MCH (27.0-33.0) pg MCHC (31.0-35.0) g/dl RDW (11.0-16.0) % Plt Count (160-400) X10*3/uL MPV (9.4-12.3) fL Immature Gran % (Auto) (0.0-0.4) % Neut % (Auto) (45-73) % Lymph % (Auto) (20-40) % [place] % (Auto) (2-11) % Eos % (Auto) (0-4) % Baso % (Auto) (0-2) % Lymph # (Auto) (1.2-4.9) X10*3/uL [place] # (Auto) (0.1-1.2) X10*3/uL Eos # (Auto) (0.0-0.4) X10*3/uL Baso # (Auto) (0.0-0.2) X10*3/uL Abs Immat Gran (auto) (0.00-0.03) X10*3/uL Absolute Neuts (auto) (2.0-8.3) x10*3/uL Absolute Nucleated RBC (0.0-0.012) X10*3/uL Nucleated RBC % (auto) (0.0-0.2) /100WBC PT (10.0-13.1) SEC INR (0.9-1.1) APTT (26.0-36.4) SEC D-Dimer High Sensitivty NG/ML Sodium (135-145) mmol/L Potassium (3.3-5.1) mmol/L Chloride (96-108) mmol/L Carbon Dioxide (22-29) mmol/L Anion Gap (12-20) BUN (9-16) mg/dL Creatinine (0.5-1.4) mg/dL Estim Creat Clear Calc Estimated GFR Random Glucose (60-115) mg/dL Calcium (8.4-10.2) mg/dL Total Bilirubin (0.0-1.0) mg/dL AST (5-31) U/L ALT (0-31) U/L Alkaline Phosphatase (39-117) U/L Troponin I High Sens < 2.7 (<3.5-17.0) ng/L B-Natriuretic Peptide 27 (<100) pg/mL Total Protein (6.5-8.0) g/dL Albumin (3.5-5.0) g/dL Lipase (8-78) U/L Urine Color Yellow Urine Appearance Cloudy Urine pH 5.5 (5.0-9.0) Ur Specific [place] 1.020 (1.005-1.025) Urine Protein Trace (Neg-Trace) mg/dL Urine Glucose (UA) Negative (Negative) mg/dL Urine Ketones Negative (Negative) mg/dL Urine Blood Negative (Negative) Urine Nitrite Negative (Negative) Ur Leukocyte Esterase Trace H (Negative) Urine RBC 3-5 H (0-2) /HPF Urine WBC 0-5 (0-5) /HPF Ur Squamous Epith Cells 6-10 (0-2) /HPF Urine Bacteria 4+ (None Seen) Hyaline Casts 0-2 (0-2) /LPF COVID-19 (DORA) (Negative) COVID-19 Clin Com 12/15/22 Range/Units 21:50 WBC (4.8-10.8) X10*3/uL RBC (4.20-5.50) X10*6/uL Hgb (12.0-16.0) g/dl Hct (37.0-47.0) % MCV (80.0-98.0) fL MCH (27.0-33.0) pg MCHC (31.0-35.0) g/dl RDW (11.0-16.0) % Plt Count (160-400) X10*3/uL MPV (9.4-12.3) fL Immature Gran % (Auto) (0.0-0.4) % Neut % (Auto) (45-73) % Lymph % (Auto) (20-40) % [place] % (Auto) (2-11) % Eos % (Auto) (0-4) % Baso % (Auto) (0-2) % Lymph # (Auto) (1.2-4.9) X10*3/uL [place] # (Auto) (0.1-1.2) X10*3/uL Eos # (Auto) (0.0-0.4) X10*3/uL Baso # (Auto) (0.0-0.2) X10*3/uL Abs Immat Gran (auto) (0.00-0.03) X10*3/uL Absolute Neuts (auto) (2.0-8.3) x10*3/uL Absolute Nucleated RBC (0.0-0.012) X10*3/uL Nucleated RBC % (auto) (0.0-0.2) /100WBC PT (10.0-13.1) SEC INR (0.9-1.1) APTT (26.0-36.4) SEC D-Dimer High Sensitivty NG/ML Sodium (135-145) mmol/L Potassium (3.3-5.1) mmol/L Chloride (96-108) mmol/L Carbon Dioxide (22-29) mmol/L Anion Gap (12-20) BUN (9-16) mg/dL Creatinine (0.5-1.4) mg/dL Estim Creat Clear Calc Estimated GFR Random Glucose (60-115) mg/dL Calcium (8.4-10.2) mg/dL Total Bilirubin (0.0-1.0) mg/dL AST (5-31) U/L ALT (0-31) U/L Alkaline Phosphatase (39-117) U/L Troponin I High Sens (<3.5-17.0) ng/L B-Natriuretic Peptide (<100) pg/mL Total Protein (6.5-8.0) g/dL Albumin (3.5-5.0) g/dL Lipase (8-78) U/L Urine Color Urine Appearance Urine pH (5.0-9.0) Ur Specific [place] (1.005-1.025) Urine Protein (Neg-Trace) mg/dL Urine Glucose (UA) (Negative) mg/dL Urine Ketones (Negative) mg/dL Urine Blood (Negative) Urine Nitrite (Negative) Ur Leukocyte Esterase (Negative) Urine RBC (0-2) /HPF Urine WBC (0-5) /HPF Ur Squamous Epith Cells (0-2) /HPF Urine Bacteria (None Seen) Hyaline Casts (0-2) /LPF COVID-19 (DORA) Negative (Negative) COVID-19 Clin Com See Note Independent Interpretation I performed an independent interpretation of an: Plain X-Ray (Chest: No acute intrathoracic pathology.) and CT Scan (Head the 5th: No acute intra cranial pathology.) Radiology Impression Discussion of test interpretation with radiology: I have reviewed the radiologist's reading. Discharge Plan Discharge Clinical Impression: Generalized weakness Patient Disposition: Home, Self-Care Instructions: Weakness (ED) Prescriptions: No Action (DME) hospital bed Kit See Rx Instructions .Route Qty: 1 0RF Rx Instructions: As directed, semi electric bed for 1 year Prolia 60 mg/mL syringe 60 mg subcut [id number] Qty: 1 2RF miscellaneous medical supply [facility] [place] 1 ea miscellaneous DAILY Qty: 200 11RF Rx Instructions: wipe, aloetouch, frag free miscellaneous medical supply [facility] [place] 1 ea miscellaneous DAILY Qty: 72 11RF Rx Instructions: disposable bed pads (DME) latex gloves [Latex Gloves, Medium] [facility] [place] See Rx Instructions .Route Qty: 100 11RF Rx Instructions: As directed (DME) Briefs, Adult-Extra Large Mis See Rx Instructions .Route Qty: 70 11RF Rx Instructions: As directed calcium carbonate-vitamin D3 [Calcium 600 + D(3)] 600 mg-10 mcg (400 unit) tablet 1 tab PO DAILY Qty: 90 1RF carbidopa-levodopa 25-100 mg tablet 1 tab PO TID (DME) Shower Chair Misc See Rx Instructions .Route Qty: 1 0RF Rx Instructions: As directed amlodipine 5 mg tablet 5 mg PO DAILY Qty: 90 1RF furosemide 20 mg tablet 20 mg PO DAILY Qty: 90 1RF irbesartan 150 mg tablet 150 mg PO DAILY Qty: 90 1RF metoprolol tartrate 50 mg tablet 50 mg PO BID Qty: 180 1RF pravastatin 10 mg tablet 10 mg PO BEDTIME Qty: 90 1RF pantoprazole 40 mg tablet,delayed release (DR/EC) 40 mg PO DAILY Qty: 90 1RF tolterodine 2 mg capsule,extended release 24hr 4 mg PO DAILY 90 Days Qty: 180 3RF Referrals: Michaela Barillas, [employer] [Primary Care Provider] -
[2022-12-15 13:36] LABS: Prothrombin Time 11.5 SEC (10.0-13.1)
[2022-12-15 13:39] LABS: Partial Thromboplastin Time 35.8 SEC (26.0-36.4)
[2022-12-15 14:19] LABS: MANUAL DIFF FLAG NO
[2022-12-15 14:21] LABS: Basophils Percent Auto 0.4 % (0-2); Eosinophils Percent Auto 0.1 % (0-4); Hematocrit 42.6 % (37.0-47.0); Hemoglobin 14.1 g/dl (12.0-16.0); Imm Gran Abs Auto 0.09 X10*3/uL (0.00-0.03); Imm Gran Pct Auto 0.9 % (0.0-0.4); Lymphocytes Absolute Auto 1.6 X10*3/uL (1.2-4.9); Lymphocytes Percent Auto 16.6 % (20-40); Mean Corpuscular HGB Conc 33.1 g/dl (31.0-35.0); Mean Corpuscular Hemoglobin 29.8 pg (27.0-33.0); Mean Corpuscular Volume 90.1 fL (80.0-98.0); Mean Platelet Volume 9.8 fL (9.4-12.3); Monocytes Absolute Auto 0.9 X10*3/uL (0.1-1.2); Monocytes Percent Auto 8.9 % (2-11); Neutrophils Absolute Auto 6.9 x10*3/uL (2.0-8.3); Neutrophils Percent Auto 73.1 % (45-73); Platelet Count 155 X10*3/uL (160-400); Red Blood Count 4.73 X10*6/uL (4.20-5.50); Red Cell Distribution Width 14.3 % (11.0-16.0); White Blood Count 9.5 X10*3/uL (4.8-10.8)
[2022-12-15 14:32] LABS: Anion Gap 14 (12-20)
[2022-12-15 14:36] LABS: Alanine Aminotransferase 14 U/L (0-31); Alkaline Phosphatase 96 U/L (39-117); Aspartate Amino Transferase 18 U/L (5-31); Bilirubin Total 0.6 mg/dL (0.0-1.0); Blood Urea Nitrogen 10 mg/dL (9-16); Calcium 10.2 mg/dL (8.4-10.2); Carbon Dioxide 22 mmol/L (22-29); Chloride 105 mmol/L (96-108); Creatinine Clr Calc Pharmacy 46.4; Estimated Glomerular Filt Rate > 60; Glucose Random 101 mg/dL (60-115); Lipase 30 U/L (8-78); Potassium 4.2 mmol/L (3.3-5.1); Sodium 137 mmol/L (135-145); Total Protein 9.2 g/dL (6.5-8.0)
[2022-12-15 14:42] LABS: B Type Natriuretic Peptide 27 pg/mL (<100)
[2022-12-15 14:49] LABS: Troponin-I High Sensitivity < 2.7 ng/L (<3.5-17.0)
--- NOTE | 2022-12-15 18:00 | PC.NURSE ---
2 assist to commode for ua sample
[2022-12-15 18:13] LABS: Appearance Urine Cloudy; Color Urine Yellow; Glucose Urine UA Negative (Negative); Leukocyte Esterase Urine Trace (Negative); Nitrite Urine Negative (Negative); PH 5.5 (5.0-9.0); UMIC TRIGGER UACC YES; Urine Blood Negative (Negative); Urine Ketones Negative (Negative); Urine Protein Trace mg/dL (Neg-Trace)
[2022-12-15 18:15] LABS: Bacteria Urine 4+ (None Seen); Hyaline Casts Urine 0-2 /LPF (0-2); WBC Urine 0-5 /HPF (0-5)
[2022-12-15 19:19] VITALS: BP 157/81; PULSE 84; RESP 18; O2SAT 97
[2022-12-15 19:26] LABS: D Dimer High Sensitivity 378 NG/ML
--- NOTE | 2022-12-15 19:27 | PC.NURSE ---
Assumed care of pt. Pt lying on stretcher, swedish speaking with daughter preset who agrees to interpret for assessment. Pt c/o knee aching, weakness since during visit to [place]. Pt uses walker at baseline, present with wheelchair. Pt has appt with PT in March of this year, family feels possible admission to rehab facility woul be more apporpriate. VSS, WCTM
--- NOTE | 2022-12-15 20:59 | PC.NURSE ---
Previously inserted IV not sufficient for ordered CT. Charge attempting to obtain new IV> MD aware.
[2022-12-15 21:00] VITALS: BP 174/86; PULSE 89; RESP 17; TEMP 38.6; O2SAT 94
[2022-12-15] MEDS: iohexoL 350 MG/ML 100 ML INFUS..BTL IV (21:44)
[2022-12-15 22:12] LABS: COVID-19 Test Negative (Negative); IDNOW Serial# 9DB6401D
== END 2022-12-15 23:51 | disposition home or self-care (01) ==
PROVIDERS: Internal Medicine; Physician Assistant; Emergency Provider Emergency Medicine; PCP Nurse Practitioner Family
DX: R53.1 Weakness (principal); R60.0 Localized edema; R06.02 Shortness of breath; R51.9 Headache, unspecified; R94.31 Abnormal electrocardiogram [ECG] [EKG]; Z20.822 Contact with and (suspected) exposure to COVID-19; Z20.828 Contact with and (suspected) exposure to other viral communicable diseases; Z79.899 Other long term (current) drug therapy
CPT/HCPCS: 36415; 70450; 71045; 71275; 80053; 81001; 83690; 83880; 84484; 85025; 85379; 85610; 85730; 87635; 93005; 99284; 99285; Q9967

== ENCOUNTER 2023-01-14 08:57 | Outpatient (AMB) | payer OTHER, SELFPAY ==
--- NOTE | 2023-01-14 09:01 | A.OFFPC_ITS ---
Vital Signs 01/14/23 09:02 Height 4 ft 8 in Weight 152 lb 12.485 oz BMI 34.2 BP 132/88 Blood Pressure Location Lt brachial Position Sitting Pulse 74 Pulse Source Pulse Oximeter Pulse Oximetry (%) 97 Oxygen Delivery Method Room Air Intake Visit Reasons: F/u on HTN, HLD Allergies aspirin Allergy (Verified 01/14/23 09:22) Anaphylaxis Medication List - Last Reconciled 01/14/23 by FERNANDA Garcia amlodipine 5 mg PO DAILY calcium carbonate-vitamin D3 600 mg-10 mcg (400 unit) (Calcium 600 + D(3)) 1 tab PO DAILY denosumab (Prolia) 60 mg subcut [id number] diaper,brief,adult,disposable (Briefs, Adult-Extra Large) As directed furosemide 20 mg PO DAILY hospital bed As directed, semi electric bed for 1 year irbesartan 150 mg PO DAILY latex gloves (Latex Gloves, Medium) As directed metoprolol tartrate 50 mg PO BID miscellaneous medical supply 1 ea miscellaneous DAILY miscellaneous medical supply 1 ea miscellaneous DAILY pantoprazole 40 mg PO DAILY pravastatin 10 mg PO BEDTIME Shower Chair As directed tolterodine ER 4 mg (2 x 2 mg) PO DAILY 90 days Tobacco use date assessed: 10/24/22 Fall risk assessment: No Falls in past year Last assessed Fall Risk: 01/14/23 Dental Screening Dental Screen Date: 01/14/23 Did you have a dental visit in the last 12 months?: No Did you have a dental problem in the last 6 months where you did not have access to dental care?: No Was dental information given to patient?: No HPI F/u on HTN, HLD HPI Details Patient is a 67-year-old female presents today for a routine follow- up.? Medical history significant for elevated fasting glucose, hyperlipidemia, GERD, impaired mobility and ADLs, urinary incontinence - followed by [facility], history of CVA, hypertension, dementia, vascular parkinsonism - followed by [facility]. Patient is accompanied by her daughter Vania who is a USER EXPERIENCE TEAM LEAD. Patient needs help with ADLs and she is able to feed herself.? Patient ambulates short distances with a walker and assistance.? Patient denies shortness of breath or chest pain. Daughter reports that patient was recently discharged from [facility] due to UTI and constipation. Encouraged to do blood work before next office visit. Will follow-up on medline supplies, did not received them this month.? ? [facility] Medical History COVID-19 History of CVA (cerebrovascular accident) History of DVT (deep vein thrombosis) Hospital discharge follow-up Parkinsons disease Surgical History H/O section H/O hand surgery Hx of colonoscopy Family History Mother Hypertension History of CVA (cerebrovascular accident) Father Diabetes Social History Housing: House Patient Tobacco Use Status: Never used Tobacco e-Cigarette/Vaping Use: Never Used Advance Directives Date on File: 06/02/22 service: No Cognitive needs: Yes (walker ) Hearing needs: No Vision needs: No Questionnaire PHQ-9 Over the last 2 weeks, how often have you been bothered by any of the following problems? 1. Little interest or pleasure in doing things: not at all 2. Feeling down, depressed, or hopeless: not at all 3. Trouble falling or staying asleep, or sleeping too much: not at all 4. Feeling tired or having little energy: not at all 5. Poor appetite or overeating: not at all 6. Feeling bad about yourself - or that you are a failure or have let yourself or your family down: not at all 7. Trouble concentrating on things, such as reading the newspaper or watching television: not at all 8. Moving or speaking so slowly that other people could have noticed. Or the opposite - being so fidgety or restless that you have been moving around a lot more than usual: not at all 9. Thoughts that you would be better off or of hurting yourself in some way: not at all Total score: 0 Depression Screening Interpretation: Negative 52941 - PHQ-9 Billing: Yes Source: Developed by Drs. Darshan Bowser, Evangelina Severino, Jourdan Urena and colleagues, with an educational abiel from [email or web address]. Thrive Questionnaire Date Thrive assessed: 07/25/22 AUDIT C Alcohol Use Questionnaire (AUDIT-C) 1. How often do you have a drink containing alcohol?: Never 2. How many drinks containing alcohol do you have on a typical day when you are drinking?: 1 or 2 (0) 3. How often do you have six or more drinks on one occasion?: Never Total Score: 0 Score Reviewed/Action Taken: No VINEET-7 AMB Questionnaire VINEET-7 Date VINEET - 7 assessed: 09/12/22 Source: Developed by Drs. Darshan Bowser, Evangelina Severino, Jourdan Urena and colleagues, with an educational abiel from [email or web address]. Review of Systems Const Unobtainable due to mental status Reports no additional complaints Eyes Reports no additional complaints ENT Reports no additional complaints Card Reports no additional complaints Resp Reports no additional complaints GI Reports no additional complaints Reports urinary incontinence Musc Reports no additional complaints Physical exam (Primary Care) Vital Signs: Last Vital Signs Pulse 74 01/14/23 09:02 BP 132/88 01/14/23 09:02 Pulse Ox 97 01/14/23 09:02 Oxygen Delivery Method Room Air 01/14/23 09:02 BMI result Body Mass Index 34.2 Tobacco/Smoking Status: Tobacco use Status Tobacco use date assessed 10/24/22 01/14/23 09:09 Patient Tobacco Use Status Never used Tobacco 01/14/23 09:09 e-Cigarette/Vaping Use Never Used 01/14/23 09:09 PHQ-9: PHQ-9 Score PHQ-9: Total score 0 01/14/23 09:09 Depression Screening Interpretation: Negative Thrive Assessment: Date of Thrive Assessment Date Thrive assessed 07/25/22 01/14/23 09:09 Const Other: Patient unable to transfer on the exam table Patient is in a wheelchair General: cooperative and no acute distress Orientation/consciousness: oriented to person and oriented to place [facility] Head: Yes normocephalic and Yes atraumatic Face and sinus: Yes sinuses nontender Mouth: oropharynx normal and moist mucous membranes Throat: Yes posterior oropharynx normal Eyes General: appearance normal, both eyes and all related structures Pupils: Equal, round and reactive pupils present EOM: EOMs intact bilaterally Neck Neck: Yes normal visual inspection, Yes full ROM and Yes no lymphadenopathy Resp Effort & Inspection: normal respiratory effort and able to speak in complete sentences Auscultation: clear to auscultation bilaterally, no crackles, no rales, no rhonchi and no wheezes Cardio Rate: regular rate Rhythm: regular rhythm Heart sounds: S1 normal heart sound present, S2 normal heart sound present and no murmurs GI Palpation (GI): Soft to palpation, not firm, nontender, no guarding, not rigid and no hepatosplenomegaly Auscultation: normal bowel sounds Skin General skin exam: no rashes or lesions noted Neuro General: oriented to person and oriented to place Cranial nerves: Yes Equal, round and reactive pupils present Extrem General: Yes full ROM Assessment and Plan Assessment & Plan (1) Urinary incontinence: Code(s): R32 - Unspecified urinary incontinence Plan: Continue to follow-up with [facility] On tolterodine (2) Hypertension: Code(s): I10 - Essential (primary) hypertension Plan: Goal BP equal or less than 140/90 Amlodipine 5 mg daily Lasix 20 mg daily Ibesartan 150 mg daily Metoprolol 50 mg 2 times a day Low-sodium diet (3) Dementia: Comment: vascular Code(s): F03.90 - Unspecified dementia, unspecified severity, without behavioral disturbance, psychotic disturbance, mood disturbance, and anxiety Plan: Continue to follow-up with neurology Dr. Wade (4) GERD (gastroesophageal reflux disease): Code(s): K21.9 - Gastro-esophageal reflux disease without esophagitis Plan: Pantoprazole 40 mg daily Avoid GERD trigger foods Do not lay down 2-3 hours after evening meal (5) Elevated fasting glucose: Code(s): R73.01 - Impaired fasting glucose Plan: A1c 5.5 06/2022 (6) Hyperlipidemia: Code(s): E78.5 - Hyperlipidemia, unspecified Plan: Pravastatin 10 mg at bedtime Low-cholesterol diet (7) Vascular parkinsonism: Code(s): G21.4 - Vascular parkinsonism Plan: Continue to follow-up with neurology Dr. Wade - not on treatment Plan Keep appointment with PCP as scheduled or follow-up sooner as needed Medications: Refilled amlodipine 5 mg PO DAILY 90 tabs 1RF I10 - Essential (primary) hypertension furosemide 20 mg PO DAILY 90 tabs 1RF I10 - Essential (primary) hypertension irbesartan 150 mg PO DAILY 90 tabs 1RF I10 - Essential (primary) hypertension metoprolol tartrate 50 mg PO BID 180 tabs 1RF I10 - Essential (primary) hypertension pantoprazole 40 mg PO DAILY 90 tabs 1RF K21.9 - Gastro-esophageal reflux disease without esophagitis pravastatin 10 mg PO BEDTIME 90 tabs 1RF E78.5 - Hyperlipidemia, unspecified Coding Level of Care Code Est Pt Level 4 (10636) Diagnoses Urinary incontinence R32 Hypertension I10 Dementia F03.90 GERD (gastroesophageal reflux disease) K21.9 Elevated fasting glucose R73.01 Hyperlipidemia E78.5 Vascular parkinsonism G21.4
[2023-01-14 09:02] VITALS: BP 132/88; PULSE 74; O2SAT 97; BMI 34.2
== END 2023-01-14 09:39 | disposition home or self-care (01) ==
PROVIDERS: Visit Provider Nurse Practitioner Family
DX: I10 Essential (primary) hypertension (principal); F03.90 Unspecified dementia, unspecified severity, without behavioral disturbance, psychotic disturbance, mood disturbance, and anxiety; G21.4 Vascular parkinsonism; K21.9 Gastro-esophageal reflux disease without esophagitis; R32 Unspecified urinary incontinence; R73.01 Impaired fasting glucose; E78.5 Hyperlipidemia, unspecified
CPT/HCPCS: 99214

== ENCOUNTER 2023-03-27 10:01 | Outpatient (AMB) | payer OTHER, SELFPAY ==
--- NOTE | 2023-03-27 10:06 | A.OFFVIS_ITS ---
Intake Intake Visit Reasons: 6m/PVR Intake Note: Patient is present for follow up pvr/incontinence Urology Medications: tolterodine Blood Thinner: none PVR: 252 mL Architect In Training Required: Yes Architect In Training Language: Insolvency Practitioner Name: Jerson Information Interpreted: non-clinical & clinical Accompanied by: Self / Same As Patient Allergies aspirin Allergy (Verified 03/27/23 11:02) Anaphylaxis Medication List - Last Reconciled 03/27/23 by FERNANDA Reno-GORDON amlodipine 5 mg PO DAILY calcium carbonate-vitamin D3 600 mg-10 mcg (400 unit) (Calcium 600 + D(3)) 1 tab PO DAILY denosumab (Prolia) 60 mg subcut [id number] diaper,brief,adult,disposable (Briefs, Adult-Extra Large) As directed furosemide 20 mg PO DAILY hospital bed As directed, semi electric bed for 1 year irbesartan 150 mg PO DAILY latex gloves (Latex Gloves, Medium) As directed metoprolol tartrate 50 mg PO BID miscellaneous medical supply 1 ea miscellaneous DAILY miscellaneous medical supply 1 ea miscellaneous DAILY pantoprazole 40 mg PO DAILY pravastatin 10 mg PO BEDTIME Shower Chair As directed tolterodine ER 2 mg PO DAILY 30 days HPI HPI Comments History of Present Illness Details Vania is a 68-year-old [place] Verde[place]-speaking female patient of Dr. Barillas who was accompanied by her daughter at today's visit. She has a medical history significant for elevated fasting glucose, hyperlipidemia, GERD, impaired m obility and ADLs, urinary incontinence, history of CVA, hypertension, dementia, vascular parkinsonism - followed by [facility]. Patient presents to the office today for follow-up of her urinary incontinence. When asked patient reports to be doing and feeling well. Daughter discusses recent [facility] visit for weakness and was noted to have a urinary tract infection. However, in review of patients chart I do not see a UTI diagnosis. In office urinalysis results reviewed with the patient and her daughter today. 2+ leukocytes otherwise no nitrates or microscopic hematuria noted. When asked patient currently is he is experiencing bladder pressure. PVR 252 mL. Discussed at length incomplete bladder emptying in relation to recurrent urinary tract infections. When asked patient reports compliance with 4 mg of tolterodine daily with 2 mg in the morning and 2mg at night. Discussed discontinuing medication due to incomplete bladder emptying however the daughter reports urinary symptoms of urgency and frequency with episodes of incontinence have decreased on tolterodine. Discussed at length if we continue with 4 mg of tolterodine daily incomplete bladder emptying could potentially continue if not worsen. Previous workup has included a retroperitoneal ultrasound that noted bilateral kidneys with no calculi, lesions, or hydronephrosis noted. The bladder is well distended and normal. Prevoid bladder volume is 216 mL. Postvoid bladder volume 73.8 mL. Patient otherwise denies hematuria, dysuria, foul smelling urine, changes to urinary stream, flank pain, fever, and or chills. [facility] Medical History Parkinsons disease Hospital discharge follow-up COVID-19 History of DVT (deep vein thrombosis) History of CVA (cerebrovascular accident) Surgical History Hx of colonoscopy H/O hand surgery H/O section Family History Mother Hypertension History of CVA (cerebrovascular accident) Father Diabetes Social History Housing: House Patient Tobacco Use Status: Never used Tobacco e-Cigarette/Vaping Use: Never Used Advance Directives Date on File: 06/02/22 service: No Cognitive needs: Yes (walker ) Hearing needs: No Vision needs: No Review of Systems Const Reports as per HPI Eyes Reports no additional complaints ENT Reports no additional complaints Card Reports as per HPI Resp Reports no additional complaints GI Reports as per HPI Reports as per HPI Musc Reports as per HPI Neuro Reports as per HPI Endo Reports as per HPI Mark/Lymph Reports no additional complaints Aller/Immun Reports no additional complaints Physical Exam Const General: cooperative, comfortable, no acute distress, well developed, alert and awake Orientation/consciousness: oriented to person Limitations: wheelchair HEENT Head: Yes normal to inspection, Yes normocephalic and Yes atraumatic Neck Neck: Yes normal visual inspection and Yes trachea midline Chest Chest palpation & inspection: normal inspection of the chest Resp Effort & Inspection: normal respiratory effort and able to speak in complete sentences Cardio Rate: regular rate General: Yes no CVA tenderness Back/Spine/Pelvis Back: no CVA tenderness Neuro General: oriented to person Psych Appearance: grossly normal Attitude: cooperative Insight: Limited insight present (Psych) Judgement: Limited judgement present (Psych) Office Procedures Post Void Residual Post Residual Void Post Void Residual (PVR): 252 [id number] Void Residual by ultrasound Results AMB Urinalysis, Automated UA Leukoctes 125 Hernán/uL Last Edit by [facility] on 03/27/23 10:30 2+ Yeimi Guo 03/27/23 10:30 UA Nitrite Negative Last Edit by Ye[facility] on 03/27/23 10:30 UA Urobilinogen 0.2 mg/dL Last Edit by [facility] on 03/27/23 10:3 0 UA Protein 0 mg/dL Last Edit by [facility] on 03/27/23 10:30 UA pH 6.0 Last Edit by [facility] on 03/27/23 10:30 UA Blood 0 Bahman/uL Last Edit by [facility] on 03/27/23 10:30 UA Specific [place] 1.020 Last Edit by Yeimi Guo Elen on 03/27/23 10: 30 UA Ketone Negative Last Edit by [facility] on 03/27/23 10:30 UA Bilirubin 0 mg/dL Last Edit by Ye[facility] on 03/27/23 10:30 UA Glucose 0 mg/dL Last Edit by Ye[facility] on 03/27/23 10:30 Results Reviewed Results Reviewed: Laboratory Last Values Urine pH (Auto) 6.0 03/27/23 10:29 Specific [place] (Auto) 1.020 03/27/23 10:29 Urine Protein (Auto) 0 mg/dL 03/27/23 10:29 Glucose (UA)(Auto) 0 mg/dL 03/27/23 10:29 Urine Ketones (Auto) Negative 03/27/23 10:29 Urine Blood (Auto) 0 Bahman/uL 03/27/23 10:29 Urine Nitrite (Auto) Negative 03/27/23 10:29 Urine Bilirubin (Auto) 0 mg/dL 03/27/23 10:29 Urine Urobilinogen (Auto) 0.2 mg/dL 03/27/23 10:29 Leukocyte Esterase (Auto) 125 Hernán/uL 03/27/23 10:29 Assessment & Plan Assessment & Plan (1) Urinary incontinence: Code(s): R32 - Unspecified urinary incontinence (2) Incomplete bladder emptying: Code(s): R33.9 - Retention of urine, unspecified Plan In office urinalysis results reviewed with the patient and her daughter today; will send for urine culture PVR 252 mL. Discussed discontinuation of tolterodine however will decrease dose to 2 mg daily Discussed possible trial of Myrbetriq in the near future Discussed attempting to perform scheduled toileting; however daughter who is patient's STEELER states this is not feasible for her. Discussed at length affects of incomplete bladder emptying. Follow-up in 1 month with PVR; or sooner with any issues, concerns, and or questions. Orders: Orders AMB Urinalysis Automated 03/27/23 Z13.9 - Encounter for screening, unspecified AMB Post Void Residual by ultrasound 03/27/23 N39.8 - Other specified disorders of urinary system Urine Culture 03/27/23 R32 - Unspecified urinary incontinence Medications: Changed From tolterodine ER 4 mg (2 x 2 mg) PO DAILY 90 days 180 caps 3RF R39.15 - Urgency of urination To tolterodine ER this is a decrease in prior dose 2 mg PO DAILY 30 days 30 caps 2RF R39.15 - Urgency of urination Patient Instructions: The patient had an opportunity to ask questions regarding the treatment plan. All questions were answered. Physical exam, labs, and imaging were discussed and reviewed in detail. As well as risks, benefits, and discussion of treatment choices. No major barriers to understanding were identified. The patient expressed understanding and agreement with the above treatment plan. The patient was made aware they should contact our office by phone for worsening of their current condition, the appearance of new symptoms, or with any questions or concerns. Compliance is encouraged with any medications and follow up testing that is ordered. It is a privilege to be allowed the opportunity to participate in? your urological care.? Again, if you have any questions or concerns If you have any questions or concerns please do not hesitate to contact me. The office is [phone]. This note is constructed using voice recognition software. While every effort has been made to ensure accuracy engraver hand soft metals errors may have been included. Yours sincerely, ARIEL Reno Coding Level of Care Code Est Pt Level 4 (84573) Diagnoses Urinary incontinence R32 Incomplete bladder emptying R33.9 CPT Codes Post Residual Void - PVR CPT Code: 61779-Etsm Void Residual by ultrasound ([id number])
== END 2023-03-27 11:25 | disposition home or self-care (01) ==
PROVIDERS: PCP Nurse Practitioner Family; Visit Provider Nurse Practitioner Family
DX: R32 Unspecified urinary incontinence (principal); R33.9 Retention of urine, unspecified
CPT/HCPCS: 99214

== ENCOUNTER 2023-03-27 10:01 | Outpatient (REF) | payer OTHER, SELFPAY | END 2023-03-27 10:02 | disposition home or self-care (01) | LOC: HO.LNP 10:01 | PROVIDERS: Visit Provider Nurse Practitioner Family | DX: R32 Unspecified urinary incontinence (principal); R33.9 Retention of urine, unspecified; N39.8 Other specified disorders of urinary system; R39.15 Urgency of urination; Z79.899 Other long term (current) drug therapy | CPT/HCPCS: 51798; 81003; 87086; 99212 ==

== ENCOUNTER 2023-04-02 09:30 | Outpatient (REF) | payer OTHER, SELFPAY | END 2023-04-02 09:31 | disposition home or self-care (01) | LOC: HO.LAB 09:30 | PROVIDERS: PCP Nurse Practitioner Family; Visit Provider Nurse Practitioner Family | DX: E78.5 Hyperlipidemia, unspecified (principal); R73.01 Impaired fasting glucose; I10 Essential (primary) hypertension; M81.0 Age-related osteoporosis without current pathological fracture; Z79.899 Other long term (current) drug therapy | CPT/HCPCS: 36415; 80053; 80061; 99212 ==

== ENCOUNTER 2023-04-02 10:12 | Outpatient (AMB) | payer OTHER, SELFPAY ==
[2023-04-02 10:19] VITALS: BP 112/72; PULSE 80
--- NOTE | 2023-04-02 10:19 | MHC.OFFVIS ---
Intake Vital Signs 04/02/23 10:19 Height 4 ft 8 in BP 112/72 Blood Pressure Location Rt brachial Position Sitting Pulse 80 Pulse Source Pulse Oximeter Intake Visit Reasons: Osteoporosis-LVM Intake Note: Patient present for Osteoporosis follow up visit. Air Intercept Controller Supervisor Required: Yes Air Intercept Controller Supervisor Language: Management Assistant Name: Yamileth medical staff Information Interpreted: non-clinical & clinical Accompanied by: Daughter Allergies aspirin Allergy (Verified 04/02/23 10:27) Anaphylaxis Medication List - Last Reconciled 04/02/23 by Darshan Lee MD amlodipine 5 mg PO DAILY calcium carbonate-vitamin D3 600 mg-10 mcg (400 unit) (Calcium 600 + D(3)) 1 tab PO DAILY denosumab (Prolia) 60 mg subcut [id number] diaper,brief,adult,disposable (Briefs, Adult-Extra Large) As directed furosemide 20 mg PO DAILY hospital bed As directed, semi electric bed for 1 year irbesartan 150 mg PO DAILY latex gloves (Latex Gloves, Medium) As directed metoprolol tartrate 50 mg PO BID miscellaneous medical supply 1 ea miscellaneous DAILY miscellaneous medical supply 1 ea miscellaneous DAILY pantoprazole 40 mg PO DAILY pravastatin 10 mg PO BEDTIME Shower Chair As directed tolterodine ER 2 mg PO DAILY 30 days HPI HPI Comments History of Present Illness Details 67 YO F with is seen in consultation at the request of PCP for Osteoporosis. First diagnosed in 2 wks ago . Not Received treatment in the past No history of pathologic fracture or ONJ.Hx of anle fx 2 yrs ago after fall Has several servings of dietary calcium per day in the form of cheese and milk . Takes Calcium supplement 600 mg daily . Takes 400 IU of Vitamin D daily. takes PPI, but no anticoagulant, antiepileptic or glucocorticoid medication. Does not do weight bearing exercise Fracture history: as above Height loss: No PAPER TUBE GRADER history: not obtainable Denies history of Kidney stones: [Denies] family history of Osteoporosis or hip fracture. UTD on dental cleanings and sees dentist every 6 months. No planned upcoming dental work or extractions. DXA dated : FINDINGS: AP SPINE L1-L4: BMD 0.774 g/cm2, Z-score -2.2, T-score -3.4, osteoporosis. LEFT FEMUR, NECK: BMD 0.783 g/cm2, Z-score -0.5, T-score -1.8, osteopenia. LEFT FEMUR, TOTAL: BMD 0.799 g/cm2, Z-score -0.6, T-score -1.7, osteopenia. IDENTIFIED RISK FACTORS: Dementia, history of fracture (adult). Early menopause, secondary osteoporosis, hysterectomy, bilateral oophorectomy. HISTORY OF FRACTURE: Other. MEDICATIONS: None listed. MM/XR DEXA axial skeleton IMPRESSION: 1. DIAGNOSIS: Osteoporosis based on the lowest T-score value of -3.4 in the lumbar spine applying World Health Organization criteria.? 2. 10-YEAR FRACTURE RISK PREDICTION, FRAX: According to the guidelines, FRAX calculation should only be performed on patients in the osteopenia bone density category. Therefore, FRAX was not performed on this patient. Labs: Secondary workup is negative. Currently receiving Prolia every 6 months. Here today for Prolia injection PFSH Medical History Parkinsons disease Hospital discharge follow-up COVID-19 History of DVT (deep vein thrombosis) History of CVA (cerebrovascular accident) Surgical History Hx of colonoscopy H/O hand surgery H/O section Family History Mother Hypertension History of CVA (cerebrovascular accident) Father Diabetes Social History Housing: House Patient Tobacco Use Status: Never used Tobacco e-Cigarette/Vaping Use: Never Used Advance Directives Date on File: 06/02/22 service: No Cognitive needs: Yes (walker ) Hearing needs: No Vision needs: No Assessment & Plan Assessment & Plan (1) Osteoporosis: Code(s): M81.0 - Age-related osteoporosis without current pathological fracture Plan: This is a 67-year-old female with history of osteoporosis. Secondary workup was negative. Currently on Prolia Plan is to continue current therapy. Patient receive a Prolia injection next month Coding Level of Care Code Est Pt Level 3 (00481) Diagnoses Osteoporosis M81.0
== END 2023-04-02 10:49 | disposition home or self-care (01) ==
PROVIDERS: PCP Nurse Practitioner Family; Visit Provider Internal Medicine Endocrinology, Diabetes & Metabolism
DX: M81.0 Age-related osteoporosis without current pathological fracture (principal)
CPT/HCPCS: 99213

== ENCOUNTER 2023-06-08 10:03 | Outpatient (AMB) | payer OTHER, SELFPAY ==
--- NOTE | 2023-06-08 10:30 | AM.OFFVISNUR ---
Intake Intake Visit Reasons: Prolia Allergies aspirin Allergy (Verified 04/02/23 10:27) Anaphylaxis Office Meds Prolia 60 mg/mL subcutaneous syringe Performing Provider: Darshan Lee MD Performing Location: [facility] Endocrinology Administered by: Vanessa Rincon LPN on 06/08/23 10:30 Dose Route Admin Location Dispensed Lot Number Expiration Date NDC Store Keeper 60 mg subcut right arm 1 mL [id number] 09/26/25 [facility] Coding Assessment & Plan Assessment & Plan Orders: Orders AMB Denosumab Injection Patient Supplied Today M81.0 - Age-related osteoporosis without current pathological fracture
== END 2023-06-08 10:37 | disposition home or self-care (01) ==
PROVIDERS: PCP Nurse Practitioner Family; Visit Provider Internal Medicine Endocrinology, Diabetes & Metabolism
DX: M81.0 Age-related osteoporosis without current pathological fracture (principal)

== ENCOUNTER → 2023-06-08 10:03 | Outpatient (BNVA) | payer OTHER, SELFPAY | PROVIDERS: PCP Nurse Practitioner Family; Visit Provider Internal Medicine Endocrinology, Diabetes & Metabolism | DX: M81.0 Age-related osteoporosis without current pathological fracture (principal) | CPT/HCPCS: 96372; J0897 ==

== ENCOUNTER 2023-08-14 09:04 | Outpatient (AMB) | payer OTHER, SELFPAY ==
--- NOTE | 2023-08-14 09:09 | A.OFFPC_ITS ---
Vital Signs 08/14/23 09:12 Height 4 ft 8 in Weight 160 lb BMI 35.9 BP 110/70 Blood Pressure Location Rt brachial Position Sitting Pulse 65 Pulse Source Pulse Oximeter Pulse Oximetry (%) 93 Oxygen Delivery Method Room Air Intake Visit Reasons: Trans. from [facility] 07/31/23-High BP Intake Note: Patient is here today for transfer of care from . Patient is here to follow-up after a visit the emergency department at [facility] on 07/31/23 Cutter Out Required: Yes Cutter Out Language: Georgian Information Interpreted: non-clinical & clinical Barker Peeler: Present Accompanied by: Daughter Allergies aspirin Allergy (Verified 08/14/23 09:31) Anaphylaxis Medication List - Last Reconciled 08/14/23 by Sonam Guzman, FERNANDA-BC [adult pullups As directed] amlodipine 5 mg PO DAILY calcium carbonate-vitamin D3 600 mg-10 mcg (400 unit) (Calcium 600 + D(3)) 1 tab PO DAILY denosumab (Prolia) 60 mg subcut [id number] diaper,brief,adult,disposable (Briefs, Adult-Extra Large) As directed disposable gloves As directed [disposabled bedpads As directed] furosemide 20 mg PO DAILY hospital bed As directed, semi electric bed for 1 year [hospital mattress As directed] [incontinence wipes As directed] irbesartan 150 mg PO DAILY latex gloves (Latex Gloves, Medium) As directed memantine 5 mg PO BID metoprolol tartrate 50 mg PO BID miscellaneous medical supply 1 ea miscellaneous DAILY miscellaneous medical supply 1 ea miscellaneous DAILY pantoprazole 40 mg PO DAILY pravastatin 10 mg PO BEDTIME Shower Chair As directed tolterodine ER 2 mg PO DAILY 30 days Tobacco use date assessed: 08/14/23 Fall risk assessment: 1 Fall in past year Last assessed Fall Risk: 08/14/23 Dental Screening Dental Screen Date: 08/14/23 Did you have a dental visit in the last 12 months?: No Did you have a dental problem in the last 6 months where you did not have access to dental care?: No Was dental information given to patient?: No HPI HPI Comments History of Present Illness Details 68-year-old female with Parkinson's, uri nary incontinence, osteoporosis, obesity, hyperlipidemia, GERD, 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 Was seen at [facility] on 07/31/2023 with chief complaints of headache. Family reported that the patient was also noted to be hypertensive with a systolic blood pressure of 160 at home. Review of the vital signs done in the emergency room show the highest systolic blood pressure of 163 and the lowest of 137. Diastolic blood pressure range 78 to 89. Pulse 50 7-73 workup included an EKG which showed sinus bradycardia, no obvious ST elevations, T-wave inversions in leads V2 through V4 which are new compared to the previous EKG however the previous EKG dates back to 2018. The patient had no complaints of chest pain and her troponins were flat at 7 [address] scan of the head was negative for acute pathology. She was treated with a migraine cocktail and reported that her headache was better upon discharge. vague c/o pain at home Here with daughter today. She reports that the issue is not a headache or elevated blood pressure rather issues managing her mother at home. She has advanced dementia with in capacity to make her own decisions. She is fine during the day however in the evening she develops moaning and crying episodes and complains of pain all over. Daughter reports it can be in the knee 1 minute and then in her neck and then it is in her head and then she is able to relax without intervention. The daughter feels this is more of a behavior rather than an actual complaint of pain. Unfortunately the patient's who lives with her calls 911 each time she has these episodes. She has had an emergency room visit on the 31 of July as well as the 29 of July both for pain. The daughter does report that she goes Tylenol and Motrin as needed during episodes however does not give this to her every day as again she does not feel this is actual pain rather than a behavior of her dementia. Dementia severity rating scale done today she scores of 5 for memory, 5 for speech and language, a 3 for recognition of family members, 4 for orientation to fer, [address] for inability to make decisions, 3 social and community activity, a 4 and home activities and responsibilities, 3 and personal care 3 in eating for for control urination and bowels, 6 ability [address] from place to home for a total score of 40 which is interpreted as severe, indicating a need for her healthcare proxy to be invoked. The healthcare proxy is present here today and is scanned into the chart a represents the daughter Liliya is the primary and only healthcare proxy. A discussion was had with Dr. Alcala. Healthcare proxy to be invoked. Daughter would like some social work support to help her with finances and placement of her mother into a long-term care facility. When asked today the patient reports that she has pain in her back when I asked to further clarify her back pain she then said that her back of her neck hurt she was unable to follow simple conversations. Only spoke when spoken to. [facility] Medical History Parkinsons disease Hospital discharge follow-up COVID-19 History of DVT (deep vein thrombosis) History of CVA (cerebrovascular accident) Surgical History Hx of colonoscopy H/O hand surgery H/O section Family History Mother Hypertension History of CVA (cerebrovascular accident) Father Diabetes Social History Housing: House Patient Tobacco Use Status: Never used Tobacco e-Cigarette/Vaping Use: Never Used Second Hand Smoke Exposure: No Advance Directives Date on File: 06/02/22 service: No Current occupational status: disabled Cognitive needs: Yes (walker and wheelchair. ) Hearing needs: No Vision needs: No Questionnaire PHQ-9 Over the last 2 weeks, how often have you been bothered by any of the following problems? 1. Little interest or pleasure in doing things: not at all 2. Feeling down, depressed, or hopeless: not at all 3. Trouble falling or staying asleep, or sleeping too much: not at all 4. Feeling tired or having little energy: not at all 5. Poor appetite or overeating: not at all 6. Feeling bad about yourself - or that you are a failure or have let yourself or your family down: not at all 7. Trouble concentrating on things, such as reading the newspaper or watching television: not at all 8. Moving or speaking so slowly that other people could have noticed. Or the opposite - being so fidgety or restless that you have been moving around a lot more than usual: not at all 9. Thoughts that you would be better off or of hurting yourself in some way: not at all Total score: 0 Depression Screening Interpretation: Negative Depression Screening Done: Yes Source: Developed by Drs. Darshan Bowser, Evangelina Severino, Jourdan Urena and colleagues, with an educational abiel from [employer]. Thrive Questionnaire Date Thrive assessed: 08/14/23 I am a: Patient What is your living situation today?: I have a steady place to live Within the past 12 months, did the food you bought not last and you didn't have the money to get more?: Never true Within the past 12 months, did you worry whether your food would run out before you got money to buy more?: Never true Do you have trouble paying for medicines?: No Do you have trouble getting transportation to medical appointments?: No Do you have trouble paying your heating and electricity bill?: No Do you have trouble taking care of your child, family member or friend?: No Do you have trouble with day-to-day activities such as bathing, preparing meals, shopping, managing finances, etc.?: No Are you currently unemployed and looking for a job?: No Are you interested in more education?: No Currently or been in a relationship where the following occur: no concerns reported THRIVE Score: 0 AUDIT C Alcohol Use Questionnaire (AUDIT-C) 1. How often do you have a drink containing alcohol?: Never Total Score: 0 VINEET-7 AMB Questionnaire VINEET-7 Date VINEET - 7 assessed: 08/14/23 Feeling nervous, anxious, or on edge: 0 = Not at all Not being able to stop or control worryin = Not at all Worrying too much about different things: 0 = Not at all Trouble relaxin = Not at all Being so restless that it is hard to sit still: 0 = Not at all Becoming easily annoyed or irritable: 0 = Not at all Feeling afraid as if something awful might happen: 0 = Not at all Total VINEET-7 score (0-4 normal; 5-9 mild; 10-14 moderate; 15-21 severe): 0 Source: Developed by Drs. Darshan Bowser, Evangelina Severino, Jourdan Urena and colleagues, with an educational abiel from [employer]. Review of Systems Const All systems reviewed & are unremarkable except as noted in HPI and below Physical exam (Primary Care) Vital Signs: Last Vital Signs Pulse 65 08/14/23 09:12 BP 110/70 08/14/23 09:12 Pulse Ox 93 08/14/23 09:12 Oxygen Delivery Method Room Air 08/14/23 09:12 BMI result Body Mass Index 35.9 Tobacco/Smoking Status: Tobacco use Status Tobacco use date assessed 08/14/23 08/14/23 09:23 Patient Tobacco Use Status Never used Tobacco 08/14/23 09:23 e-Cigarette/Vaping Use Never Used 08/14/23 09:23 PHQ-9: PHQ-9 Score PHQ-9: Total score 0 08/14/23 13:45 Depression Screening Interpretation: Negative Thrive Assessment: Date of Thrive Assessment Date Thrive assessed 08/14/23 08/14/23 09:23 Currently or been in a relationship where the following occur: no concerns reported Date of discussion: 08/14/23 Forms completed: Health Care Proxy and MOLST Time spent: 1-15 minutes, on File Did not discuss due to Cultural/Spiritual beliefs: Yes Const Other: chronically ill-appearing, on a stretcher, accompanied by daughter Vania Mucous membranes moist Regular rate and rhythm Lung sounds clear to auscultation bilat Nonreproducible pain in right lower back. When asked if her she said her pain is in her low back. When asked again she said it was in her neck. Does not appear to be uncomfortable. No facial grimacing moaning or the like Nonpitting edema bilateral lower extremities Alert to person only, no spontaneous conversation Assessment and Plan Assessment & Plan (1) Hospital discharge follow-up: Code(s): Z09 - Encounter for follow-up examination after completed treatment for conditions other than malignant neoplasm Plan: Presented to the hospital with headache and hypertension. Blood pressure is normal today and was also normal for the most part at the hospital. This was accompanied by headache. The patient does not complain of a headache today. Unfortunately it seems that she is having behaviors related to her dementia which occur at night. This includes moaning and complains of pain. Vania's called 911 with each complaint. Daughter Liliya is also a primary caregiver. She does use Tylenol and ibuprofen only as needed. She is really unsure if mom is in pain or not. I have advised her to start giving her 2 acetaminophen ER every night around dinner time or about an hour before these episodes happen to see if this helps with any complaints of pain as she certainly could be having pain although she has not able to make her needs known. I have discouraged any calling 911 unless there was an actual medical emergency such as shortness of breath. I have placed a social work refer to help her with placement of her mother into a long-term care facility and to help with finances of which is a concern. Healthcare proxy does need to be invoked. (2) Dementia: Comment: vascular, DS RS completed today and consistent with severe dementia. The patient is incapable of making her own medical decisions and therefore a healthcare proxy has been invoked. Consultation with a physician was made. Code(s): F03.90 - Unspecified dementia, unspecified severity, without behavioral disturbance, psychotic disturbance, mood disturbance, and anxiety Qualifiers: Dementia behavioral or psychological symptom: with other behavioral disturbance Dementia severity: severe Dementia type: vascular dementia Qualified Code(s): F01.C18 - Vascular dementia, severe, with other behavioral disturbance (3) Urinary incontinence: Comment: Has Rx for incontinence supplies Code(s): R32 - Unspecified urinary incontinence Qualifiers: Urinary Incontinence type: urinary incontinence without sensory awareness Qualified Code(s): N39.42 - Incontinence without sensory awareness (4) Hypertension: Comment: Blood pressure normal today controlled on irbesartan, amlodipine and metoprolol which should continue Code(s): I10 - Essential (primary) hypertension Qualifiers: Hypertension type: primary hypertension Qualified Code(s): I10 - Essential (primary) hypertension (5) Person encountering health services to consult on behalf of another person: Comment: Healthcare proxy invoked today Code(s): Z71.0 - Person encountering health services to consult on behalf of another person (6) Issue of incapacity certificate: Comment: Healthcare proxy invoked today Code(s): Z02.71 - Encounter for disability determination (7) Osteoporosis: Comment: On Prolia managed by endocrinology Code(s): M81.0 - Age-related osteoporosis without current pathological fracture Qualifiers: Osteoporosis type: age-related Presence of current pathological fract ure: without current pathological fracture Qualified Code(s): M81.0 - Age- related osteoporosis without current pathological fracture (8) Obesity (BMI 30-39.9): Comment: BMI greater than 35 with associated comorbid conditions Code(s): E66.9 - Obesity, unspecified (9) Hyperlipidemia: Comment: On pravastatin, continue Code(s): E78.5 - Hyperlipidemia, unspecified Qualifiers: Hyperlipidemia type: mixed hyperlipidemia Qualified Code(s): E78.2 - Mixed hyperlipidemia (10) GERD (gastroesophageal reflux disease): Comment: Managed on PPI continue Code(s): K21.9 - Gastro-esophageal reflux disease without esophagitis Qualifiers: Esophagitis presence: without esophagitis Qualified Code(s): K21.9 - Gastro-esophageal reflux disease without esophagitis (11) History of CVA (cerebrovascular accident): Comment: hemorrhagic stroke about 2005 with left-sided hemiparesis of upper and lower extremity Code(s): Z86.73 - Personal history of transient ischemic attack (TIA), and cerebral infarction without residual deficits (12) Hemiparesis affecting left side as late effect of cerebrovascular accident: Code(s): I69.354 - Hemiplegia and hemiparesis following cerebral infarction affecting left non-dominant side Plan Total time spent caring for the patient today was 75 minutes. This includes time spent before the visit reviewing the chart, time spent during the visit, and time spent after the visit on documentation This note is constructed using voice recognition software. While every effort has been made to ensure accuracy in toll collector supervisor, still errors may have been included Sometimes, these errors may affect the content or meaning of the given sentence . Orders: Referrals Electrician Substation Supervisor Referral F03.90 - Unspecified dementia, unspecified severity, wit hout behavioral disturbance, psychotic disturbance, mood disturbance, and anxiety Medications: New acetaminophen ER 1,300 mg (2 x 650 mg) PO Q12H 30 days 120 tabs 2RF Refilled pravastatin 10 mg PO BEDTIME 90 tabs 1RF E78.5 - Hyperlipidemia, unspecified Patient Instructions: Return to office in 2 months for a 30 minute visit to follow up on complex medical issues. If bilat time mom is placed in a long-term care facility okay to follow-up with the covering provider For the long-term care facility Coding Level of Care Code Est Pt Level 5 (01888) Diagnoses Hospital discharge follow-up Z09 Severe vascular dementia with other behavioral disturbance F01.C18 Dementia behavioral or psychological symptom: with other behavioral disturbance Dementia severity: severe Dementia type: vascular dementia Urinary incontinence without sensory awareness N39.42 Urinary Incontinence type: urinary incontinence without sensory awareness Primary hypertension I10 Hypertension type: primary hypertension Person encountering health services to consult on behalf of another person Z71.0 Issue of incapacity certificate Z02.71 Age-related osteoporosis without current pathological fracture M81.0 Osteoporosis type: age-related Presence of current pathological fracture: without current pathological fracture Obesity (BMI 30-39.9) E66.9 Mixed hyperlipidemia E78.2 Hyperlipidemia type: mixed hyperlipidemia Gastroesophageal reflux disease without esophagitis K21.9 Esophagitis presence: without esophagitis History of CVA (cerebrovascular accident) Z86.73 Hemiparesis affecting left side as late effect of cerebrovascular accident I69.354 Additional Codes Vital Signs *Quality* - Time spent: 1-15 minutes, on File ([id number]) Vital Signs *Quality* - Did not discuss due to Cultural/Spiritual beliefs: Yes ([id number])
[2023-08-14 09:12] VITALS: BP 110/70; PULSE 65; O2SAT 93; BMI 35.9
== END 2023-08-14 10:13 | disposition home or self-care (01) ==
PROVIDERS: PCP Physician Assistant; Visit Provider Nurse Practitioner Family
DX: I10 Essential (primary) hypertension (principal); Z09 Encounter for follow-up examination after completed treatment for conditions other than malignant neoplasm; F01.C18 Vascular dementia, severe, with other behavioral disturbance; I69.354 Hemiplegia and hemiparesis following cerebral infarction affecting left non-dominant side; N39.42 Incontinence without sensory awareness; Z71.0 Person encountering health services to consult on behalf of another person; Z02.71 Encounter for disability determination; M81.0 Age-related osteoporosis without current pathological fracture; E66.9 Obesity, unspecified; E78.2 Mixed hyperlipidemia; K21.9 Gastro-esophageal reflux disease without esophagitis; Z86.73 Personal history of transient ischemic attack (TIA), and cerebral infarction without residual deficits
CPT/HCPCS: 1123F; 99215

== ENCOUNTER 2023-10-16 11:22 | Outpatient (AMB) | payer OTHER, SELFPAY ==
[2023-10-16 11:43] VITALS: BP 138/80; PULSE 68; RESP 14; O2SAT 99
--- NOTE | 2023-10-16 11:43 | MHC.PC.OV ---
Vital Signs 10/16/23 11:43 Height 4 ft 8 in BMI Reason not done Patient refused/unable BP 138/80 Blood Pressure Location Rt brachial Position Sitting Respiration 14 Pulse 68 Pulse Source Pulse Oximeter Pulse Oximetry (%) 99 Oxygen Delivery Method Room Air Intake Visit Reasons: fu complex conditions( procedure room) Intake Note: Patient is here to follow up for complex conditions. Patient's daughter reports patient complains of pain in the left knee x1 month +. Patient's daughter reports she would like to discuss with the provider that she is selling the house and she is wanting to put patient in a senior care. Assembler Product Required: Yes Assembler Product Language: Title I Director Name: Daughter Vania Accompanied by: Daughter Allergies aspirin Allergy (Verified 10/16/23 12:36) Anaphylaxis Medication List - Last Reconciled 10/16/23 by FERNANDA Love-GORDON acetaminophen ER 1,300 mg (2 x 650 mg) PO Q12H 30 days [adult pullups As directed] amlodipine 5 mg PO DAILY calcium carbonate-vitamin D3 600 mg-10 mcg (400 unit) (Calcium 600 + D(3)) 1 tab PO DAILY denosumab (Prolia) 60 mg subcut [id number] diaper,brief,adult,disposable (Briefs, Adult-Extra Large) As directed disposable gloves As directed [disposabled bedpads As directed] furosemide 20 mg PO DAILY hospital bed As directed, semi electric bed for 1 year [hospital mattress As directed] [incontinence wipes As directed] irbesartan 150 mg PO DAILY latex gloves (Latex Gloves, Medium) As directed memantine 5 mg PO BID metoprolol tartrate 50 mg PO BID miscellaneous medical supply 1 ea miscellaneous DAILY miscellaneous medical supply 1 ea miscellaneous DAILY pantoprazole 40 mg PO DAILY pravastatin 10 mg PO BEDTIME Shower Chair As directed tolterodine ER 2 mg PO DAILY 30 days Tobacco use date assessed: 08/14/23 Dental Screening Dental Screen Date: 08/14/23 HPI HPI Comments History of Present Illness Details 68-year-old Serbian speaking female with Parkinson's, urinary incontinence, osteoporosis, obesity, hyperlipidemia, GERD, 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 Still needs help to place her mom in LTC. + caregiver role strain. Needs SW support. reports overall decline in her physical health; requiring more asst; 100% fecal incont. No hospital visits or falls. Limited family support Taking all meds as directed. Discussed hospice today, declines as she wants to place her mom into LTC as she cannot cont to care for her at home . [facility] Medical History Parkinsons disease Hospital discharge follow-up COVID-19 History of DVT (deep vein thrombosis) History of CVA (cerebrovascular accident) Surgical History Hx of colonoscopy H/O hand surgery H/O section Family History Mother Hypertension History of CVA (cerebrovascular accident) Father Diabetes Social History (Updated 10/16/23 @ 13:20 by Ene Sandoval [facility]) Household Members: None Housing: House 75 years or older and lives alone: No Alcohol intake: never Patient Tobacco Use Status: Never used Tobacco e-Cigarette/Vaping Use: Never Used Second Hand Smoke Exposure: No Use of substances other than those prescribed or required for medical reasons: No Have you been hit, kicked, punched, or otherwise hurt by someone within the past year? If so, by whom?: No Do you feel safe in your current relationship?: No Current Relationship Is there a partner from a previous relationship who is making you feel unsafe now?: No Are you made to feel afraid or neglected: No Advance Directives Date on File: 06/02/22 service: No Current occupational status: disabled Current occupational exposures/hazards: No Gender identity: Female Cognitive needs: Yes (walker and wheelchair. ) Hearing needs: No Vision needs: No Questionnaire Thrive Questionnaire Date Thrive assessed: 08/14/23 VINEET-7 AMB Questionnaire VINEET-7 Date VINEET - 7 assessed: 08/14/23 Source: Developed by Evangelina LockwoodW. Maycol, Jourdan Urena and colleagues, with an educational abiel from [employer]. Review of Systems Const All systems reviewed & are unremarkable except as noted in HPI and below Physical exam (Primary Care) Vital Signs: Last Vital Signs Pulse 68 10/16/23 11:43 Resp 14 10/16/23 11:43 BP 138/80 10/16/23 11:43 Pulse Ox 99 10/16/23 11:43 Oxygen Delivery Method Room Air 10/16/23 11:43 Tobacco/Smoking Status: Tobacco use Status Tobacco use date assessed 08/14/23 10/16/23 11:49 Patient Tobacco Use Status Never used Tobacco 10/16/23 11:49 e-Cigarette/Vaping Use Never Used 10/16/23 11:49 Thrive Assessment: Date of Thrive Assessment Date Thrive assessed 08/14/23 10/16/23 11:49 Assessment and Plan Assessment & Plan (1) CKD (chronic kidney disease) stage 3, GFR 30-59 ml/min: Comment: gfr 46.4 11/2022 Avoid nephrotoxic agents, on ARB Code(s): N18.30 - Chronic kidney disease, stage 3 unspecified Qualifiers: Chronic kidney disease stage 3 subtype: stage 3a (GFR 45-59) Qualified Code(s): N18.31 - Chronic kidney disease, stage 3a (2) Secondary hyperparathyroidism (of renal origin): Comment: cont Ca+D Code(s): N25.81 - Secondary hyperparathyroidism of renal origin (3) Vascular parkinsonism: Comment: ff'd by Neuro Code(s): G21.4 - Vascular parkinsonism (4) Secondary hypercoagulable state: Comment: previous history of DVT in 2019. Code(s): D68.69 - Other thrombophilia (5) Frailty syndrome in geriatric patient: Comment: Dtr wishes to have patient placed in LTC Plan: MA to call [facility] (insurance) and see what is required. If needed consult [facility] DONTA to help support dtr. Code(s): R54 - Age-related physical debility Patient Instructions: RTO IN 2 MONTHS, IF MOM IS PLACED IN LTC, NO NEED TO F/U SOONER IF NEEDED Review Patient declined Mammogram: 10/16/23 Flu Vaccine not done: patient reason Declined TDap/Td: 10/16/23 Coding Level of Care Code Est Pt Level 5 (99000) Complex EM visit Add On G2211 Diagnoses Stage 3a chronic kidney disease N18.31 Chronic kidney disease stage 3 subtype: stage 3a (GFR 45-59) Secondary hyperparathyroidism (of renal origin) N25.81 Vascular parkinsonism G21.4 Secondary hypercoagulable state D68.69 Frailty syndrome in geriatric patient R54
== END 2023-10-16 12:54 | disposition home or self-care (01) ==
PROVIDERS: PCP Nurse Practitioner Family; Visit Provider Nurse Practitioner Family
DX: N18.31 Chronic kidney disease, stage 3a (principal); N25.81 Secondary hyperparathyroidism of renal origin; G21.4 Vascular parkinsonism; D68.69 Other thrombophilia; R54 Age-related physical debility
CPT/HCPCS: 99214; G2211